=== PATIENT | female | born 1970 | race Caucasian/White ===

== ENCOUNTER 2023-05-28 07:43 | Outpatient (OUT) | payer OTHER, SELFPAY ==
--- NOTE | 2023-05-28 08:47 | CA_ITS ---
Patient Name: JOEY PETERSON MR#: [id number] : 1970 Exam Date: 05/28/2023 Ordering Doctor: JAMEL MCFARLAND ECHOCARDIOGRAM REPORT PROCEDURE: CA ECHO DOPPLER COMPLETE INDICATIONS: Palpitations, chest heaviness, hypertension COMPARISON: None. DESCRIPTION: COMPLETE ECHOCARDIOGRAM Real-time transthoracic echocardiography with 2D, M-mode, spectral and color flow Doppler performed. QUALITY: Technical quality was good. 65 , 170#, BSA 1.85 m2 LEFT VENTRICLE: Normal chamber size. Proximal septal hypertrophy (sigmoid septum). LV EF: Global left ventricular systolic function is normal; visually estimated ejection fraction is 60 to 65%. No obvious wall motion abnormalities. DIASTOLIC: Normal diastolic function. ATRIAL SEPTUM: Visually appears intact. LEFT ATRIUM: Normal chamber size. RIGHT ATRIUM: Normal chamber size. RIGHT VENTRICLE: Normal chamber size. Normal right ventricular systolic function. TRICUSPID VALVE: Normal mobility and thickness. Trivial regurgitation. No evidence of pulmonary hypertension. RVSP 29 mmHg MITRAL VALVE: Mildly thickened with normal mobility. No evidence of mitral valve stenosis. There is no mitral annular calcification. Mild mitral regurgitation. AORTIC VALVE: Normal trileaflet appearance. No visible sclerosis. Normal leaflet mobility. No evidence of aortic valve stenosis. No aortic regurgitation. AORTIC ROOT: Normal diameter and appearance. PULMONIC VALVE: Normal thickness and mobility. No stenosis. Trivial regurgitation. PERICARDIUM: No evidence of pericardial effusion. IVC: Collapses with inspirations. IVC is normal in size. CONCLUSION: 1. Global left ventricular systolic function is normal; EF is 60 to 65% 2. Normal diastolic function 3. Normal right ventricular size and systolic function 4. Mild mitral regurgitation Adult Echocardiography Procedure Report Left Ventricle LVEDD (3.7 - 5.6 cm): 4.15 cm LVESD (2.2 - 4.0 cm): 2.98 cm LVIVS thickness (0.6 - 1.2 cm): 1.45 cm LVPW thickness (0.5 - 1.0 cm): 0.87 cm e': 0.07 m/s E - e': 10.00 LVOT Max Gradient: 1.61 mm[Hg] LVOT Area (cm2): 0.64 m/s Peak Velocity (LVOT): 0.64 m/s Mean Velocity (LVOT): 0.42 m/s LVOT Diameter 2.27 cm Left Atrium LA Volume Index (2D A2C): 26.23 ml/m2 Left Atrium Systolic Dimension: 3.31 cm Mitral Valve MV E to A Ratio: 0.77 Mitral Valve A-Wave Peak Velocity: 0.89 m/s Mitral Valve E-Wave Peak Velocity: 0.68 m/s Right Ventricle Aorta AO Root Diam: 2.99 cm Ascending Ao Diam: 3.02 cm Aortic Valve AoV Area (Peak Amilcar): 2.63 cm2, 2.63 cm2 AoV Area (VTI): 2.25 cm2, 2.25 cm2 Peak Velocity(Antegrade Flow): 0.98 m/s Peak Gradient(Antegrade Flow): 3.81 mm[Hg] Mean Velocity(Antegrade Flow): 0.73 m/s Mean Gradient(Antegrade Flow): 2.28 mm[Hg] Velocity Time Integral: 22.92 cm Tricuspid Valve Peak Velocity (Regurgitant Flow): 2.53 m/s, 2.50 m/s Pulmonic Valve Peak Velocity: 0.84 m/s Peak Gradient: 3.16 mm[Hg], 2.49 mm[Hg] Right Atrium Right Atrium Systolic Pressure: 26.66 ml, 26.66 ml Dictated by: Ashley Meneses M.D. on 05/28/2023 at 14:09 Approved by: Ashley Meneses M.D. on 05/28/2023 at 14:20
--- NOTE | 2023-05-28 08:47 | CA_ITS ---
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1970 Requested By: [id number] Order Number: [id number] Reading MD: ELLIE KEITA Interpretive Statements Predominant rhythm is sinus with average rate of 79 bpm Tachycardia - max rate of 156 bpm - longest episode of 13min 7sec with rates between 111-129 bpm Bradycardia - min rate of 47 bpm - longest episode of 11min 57sec with rates between 50-58 bpm Ventricular ectopy - 35,897 total (5%) - 33,502 PVC - 202 couplets - 1,253 bigeminy - 869 trigeminy NSVT - 13 episodes with longest episode of 10 beats Patient triggered events: 3 - not associated with any symptoms - normal sinus rhythm w/ ventricular ectopy Impression: Predominant rhythm is sinus with average rate of 79 bpm Fastest rate of 156 bpm and slowest rate of 47 bpm 35,897 ventricular ectopy (5% total) 13 episodes of NSVT w/ longest episode of 10 beats No atrial fibrillation No pauses or blocks Electronically Signed On 06-17-2023 7:27:32 EST by ELLIE KEITA
== END 2023-05-28 07:44 | disposition home or self-care (01) ==
LOC: CARD 07:44
DX: I34.1 Nonrheumatic mitral (valve) prolapse (principal); R00.2 Palpitations; R07.89 Other chest pain
CPT/HCPCS: 93246; 93306

== ENCOUNTER 2023-07-09 11:55 | Outpatient (OUT) | payer OTHER, SELFPAY ==
--- NOTE | 2023-07-09 | ECG_ITS ---
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
--- OUTSIDE RECORDS SUMMARY | 2023-07-09 11:58 | XMS_ITS | CCD ---
Author Name Unknown Address [address] [place] [address] Organization [facility] Care Team Providers Care Artificial Flowers Dyer Name Role Phone KEYONNA MCFARLAND Primary Care Physician Chris Leslie Primary Care Provider [phone] Torrey ANTHONY - Keyonna SUMNER Primary Care Provide r MARSHAL ARSHAD Referring Unavailable CHRIS LESLIE Primary Care Unavailable MARSHAL ARSHAD Referring Unavailable CHRIS LESLIE Primary Care Unavailable MARSHAL ARSHAD Referring Unavailable CHRIS LESLIE Primary Care Unavailable KEYONNA MCFARLAND Primary Care Unavailable CHRIS LESLIE Referring Unavailable KEYONNA MCFARLAND Admitting Unavailable KEYONNA MCFARLAND Attending Unavailable KEYONNA MCFARLAND Consulting Unavailable KEYONNA MCFARLAND Admitting Unavailable KEYONNA MCFARLAND Attending Unavailable KEYONNA MCFARLAND Consulting Unavailable No, Physician Primary Care Provider Unavailabl e NO, PHYSICIAN Primary Care Unavailable GABRIELA ACUÑA Attending Unavaila ble KEYONNA MCFARLAND Primary Care Physician [phone] Luis Blackburn Admitting Unavailable Luis Blackburn Attending Unavailable KEYONNA MCFARLAND Attending Unavailable Allergies Allergy Classification Reported Allergen(s) Allergy Type Date of Onset Reaction(s) Facility (6 sources) Cefaclor; Translations: [cefaclor] Drug Allergy 8 Eruption of skin (disorder), Rash [facility] (4 sources) Kiwi; Translations: [Kiwi] Allergy to substance blister in mouth [facility] Medications Current Medications Medication Drug Class(es) Dates Sig (Normalized) Sig (Original) Calcium Citrate / Vitamin D (3 sources) Start: 7 Calcium + Vitamin D Calcium + Vitamin D, 1,000 mg, Oral, Daily Start Date: 02/18/17 Status: Ordered duloxetine 30 mg Cap-DR (3 sources) Start: 1 take 1 capsule by mouth twice daily duloxetine 30 mg Cap-DR = 1 cap(s), Oral, BID, (do not crush or chew) Start Date: 07/19/20 Status: Ordered enalapril maleate 10 mg / hydroCHLOROthiazide 25 mg oral tablet (3 sources) Thiazide Diuretic, Angiotensin Converting Enzyme Inhibitor Start: 4 take 1 tablet by mouth once daily enalapril-hydrochloro thiazide 10 mg-25 mg Tab 1 tab(s), Oral, Daily, Refill(s) 0, High blood pressure Start Date: 03/21/14 Status: Ordered estradiol 1 mg oral tablet (1 source) Estrogen Start: 2 take 1 tablet by mouth once daily estradioL (ESTRACE) 1 MG tablet Take 1 (one) tablet (1 mg total) by mouth daily . 0 05/06/2022 Active hydroxychloroquine sulfate 200 mg oral tablet (1 source) Antimalarial, Antirheumatic Agent Start: 3 take 1 tablet by mouth once daily hydrOXYchloroQUINE (PLAQUENIL) 200 mg tablet Take 1 (one) tablet (200 mg total) by mouth once daily . 0 07/06/2022 Active ibuprofen 800 mg oral tablet (3 sources) Nonsteroidal Anti-inflammatory Drug Start: 6 take 1 tablet by mouth every eight hours as needed for pain Motrin 800 mg Tab 800 mg = 1 tab(s), Oral, q8hr, PRN as needed for pain, Refills(s) 0, Pain Start Date: 05/15/16 Status: Ordered sulfamethoxazole 800 mg / trimethoprim 160 mg oral tablet (1 source) Dihydrofolate Reductase Inhibitor Antibacterial, Sulfonamide Antimicrobial Start: 3 End: 3 take 1 tablet by mouth twice daily sulfamethoxazole-trim ethoprim (BACTRIM DS,SEPTRA DS) 800-160 mg per tablet Take 1 (one) tablet by mouth 2 (two) times a day for 7 days . 14 tablet 0 07/24/2022 07/31/2022 Active Completed/Discontinued Medications Medication Drug Class(es) Dates Sig (Normalized) Sig (Original) nitrofurantoin, macrocrystals 25 mg / nitrofurantoin, monohydrate 75 mg oral capsule (1 source) Nitrofuran Antibacterial Start: 07-24-2022 End: 07-24-2022 take 1 capsule by mouth twice daily nitrofurantoin, macrocrystal-monoh ydrate, (Macrobid) 100 MG capsule Take 1 (one) capsule (100 mg total) by mouth 2 (two) times a day for 7 days . 14 capsule 0 07/24/2022 07/24/2022 Discontinued (Alternate therapy) Problems Problem Classification Problem Date Documented Date Episodic/Chronic Abdominal pain (6 sources) Acute abdomen; Translations: [Right upper quadrant pain] Onset: 04-09-2022 Episodic Benign neoplasm of uterus (3 sources) Uterine leiomyoma 05-15-2016 Episodic Cardiac dysrhythmias (3 sources) Cardiac arrhythmia 07-15-2020 Chronic Diabetes mellitus without complication (3 sources) Prediabetes 05-15-2016 Episodic Essential hypertension (6 sources) Hypertensive disorder 05-15-2016 Chronic Genitourinary symptoms and ill-defined conditions (6 sources) Increased frequency of urination; Translations: [Frequency of micturition] Onset: 07-24-2022 Episodic Malaise and fatigue (3 sources) Fatigue 07-15-2020 Episodic Osteoarthritis (3 sources) Osteoarthritis 02-18-2017 Chronic Other female genital disorders (3 sources) Enlarged uterus 05-15-2016 Episodic Other non-traumatic joint disorders (2 sources) Pain in unspecified joint; Translations: [Pain in unspecified joint] Onset: 01-21-2022 Episodic Other nutritional; endocrine; and metabolic disorders (1 source) Body mass index (BMI) 27.0-27.9, adult; Translations: [BODY MASS INDEX BMI 27.0-27.9 ADULT] Onset: 05-20-2022 Episodic Other screening for suspected conditions (not mental disorders or infectious disease) (2 sources) Encounter for screening for cardiovascular disorders; Translations: [Encounter for screening for diabetes mellitus] Onset: 05-20-2022 Episodic Residual codes; unclassified (3 sources) Chronic pain 03-25-2017 Episodic Rheumatoid arthritis and related disease (3 sources) Bilateral rheumatoid arthritis of hands; Translations: [Rheumatoid arthritis, unspecified] Onset: 01-21-2022 Chronic Spondylosis; intervertebral disc disorders; other back problems (3 sources) Prolapsed thoracic intervertebral disc 03-25-2017 Chronic Spondylosis; intervertebral disc disorders; other back problems (3 sources) Thoracic radiculitis 03-25-2017 Episodic Unclassified (3 sources) Patient encounter status 07-19-2020 Results Test Name Value Interpretation Reference Range Facility Insurance Correspondenceon 1 07-06-2022 Insurance Correspondence [id number] [facility] Coding Summary.on 09-02-2022 Coding Summary. CD:[id number]+PGhlYWQ +[id number] xV8zN3PFBIbHYumbK VBQTElOSyIgbmFtZT 1kaXNjZXJu IC8+AC8bOLMdGyuue CNfa0V2bUN8T05whd 2wAAkcnSR6UIQtRmB ykufrf4nlxRv5LRha NmluOyBt RDQfjD60DIM2gJ01S n40aPZrtSVvc9fssN x0PaZdHQKdAPZ5zFk kPDgbg5JrCFOmE38u zQUam3J5 IGNvbGxhcHNlOyBlb TP3uJ2jIRiqrjroo4 uggqldTgy7iu37mGH up7P1xGT6D9HiclH4 IGJvbGQg MiolsEUMtD3uthdsp 2xvcjogIzAwMDAwMD u7EPc7VHBfpNgiHmB qCX39TSX0UTIoqnSp G1PmYAEi kEnzUrR9f4V3Pn6DK 1HQIhjwH5PSSCVJVV wvdGQ+WU47br86T7N oHiffKor0GDYtIWW5 aTY9iY1n BBWjWEvsm8L1mAV0A 5ImdbJzzr8os1glMS QdXXfgT27weMTmk7I 0KXHoxFE2GAEdzNmm JhVvpG08 Oyc+ZQEvfOszs7UeI yfqf9axw0yjoXf4Nv gwJSIgdmFsaWduPSJ 1w1UzSc0mWKEsqQR4 uVJ9nC0m YlXgCnN8SQbeN819Z bYecDCkWctxO80zW7 JvdXA+IPCzOyp6MUB bzHmbXA5sO6NyEJZb bmctbGVm lYxiJA5gYBEiapypN HPriD9tTECfZ8v6Lx XqDvQ8HOfeZ7DxSER gfbtuXp67vN2qMwOr KgT3TLqo O6QyqtM5FKVxmUXeH RopSKC6U73gz1R9WP BwOPUkLBI8nFU8oG4 hbGlnbjogbGVmdDsg dmVydGlj HHerMEkhG393QBOtw DsnPkNvZGluZyBEYX RlOiAgMDMvMTUvMjA yMzwvdGQ+PHRkIHN0 eWxlPSAn qQNiYDqxBi9toBpxp HsnLZ6ePKZjzrsaLO AanE1uPMKdqDWzeAn mQG1qFPAdywvse475 OiAxMHB0 DSLjyIHlF2ZxbV6mQ dJrQHFxLTDuE3OjqJ ClPTbiQ709ORsbSmZ 9IOEcmnDzX6PcHPOu aWduOiB0 u4C1Xf0Rr5DjupcoM 3RhdHVzOiAgRmluYW k4B7JvOigpqSE+PC9 1QLBrCB64CPk8SPG8 eWxlPSdi JRMtT0LkfF8aCmXrN GRkZGRkOyc+PHRhYm xlIHdpZHRoPScxMDA fQwYijUkvDH5aTf7d ZGVyLWNv fQzvyNIrVeHns9zvJ DPaMThxHD3lwYlcC0 ZdtBR8SBDqa5g8Em0 0B07cO0TpmMA+PGNv hCK3lTZ2 nA0jVzJvGcN5PQkjC 867OvTvyFQdSabmn2 ydx2jchNt8ZwG3CZA bviZbmXlyNDR9i5Tl Sb97N67h IHdpZHRoPSIxNSUiI YGzpNvkgz3ssN0uGt 8+YSNesPE8vRK1tI3 oQcVvFqL2RImyZ159 InRvcCIv Vuyaq5gvu1tpmZe5K jIwJSIgdmFsaWduPS B4g1KyHx54E5XkmSq qs2TgWlw7sa03jPJx z7D2jND6 R8EkZJVjemahhOSwc SbhTE6rDAIldcqiQY XxhA0aMAQaA1c9YeW wBjS4WGmrZ7YutvA5 IGJvbGQg YUKwsEGOaO1blrubp 2xvcjogIzAwMDAwMD f2HAx0DZOigTpeLrF rIXB9CgI4DVK2sNYu nO5zrDwq zrifsP1xUoh+UGF0a BCqmMFNCH9kEajqzY Q+FDPnPOX2uUxjQAb vTTGeeH5hYIRgH5h7 OiAwLjA1 WXvyH5KkxpR0UTMrt VWoSYJdqIPVmC8yzn pmz4jtlaukNvOtCPF cNXo4LOv5QTZotRcr OiBsZWZ0 BiY7KLG3dILsbJ0ew ZvejqahuN4kQjl+Qm jbsMkuIUZ9NMh1F1N cCjv9ZWQxzVobVC4h cGFkZGlu Rz4qbKifwPgsPX2iP IVlyqupi617VyCwo5 xkIDEwcHQgVGltZXM 5M77lc3Y5HDBzUANk WGD3aGP3 rW5btPoljybniLJjc DsgdmVydGljYWwtYW viN538CVFoeStmFjC fHPq5E9SvDub9KMXy wTjlJV9w pSQcURvyAm6icFhdv IoxZR6tIJOwwieto0 25GbQxq2bnFZFekSP hPUalOVG9G81hb5X5 ICMwMDAw IYF6nCY0lK8peUckg jogbGVmdDsgdmVydG kjQKqeQUteO929NVN kqTvmBmJslUq5W2Jq Oti6YWAl sYfqRL0wsKBbDKrxW f3dwIophOnvYE9rIY Armcbmz687GuZvn8a kIDEwcHQgVGltZXM7 S30qd4G9 CEQjIYYlVYD3fHY8a Q4jeZpxtzldlTPhuB sgdmVydGljYWwtYWx gB259QRHtyLtpRtQd dGllbnQg NAmuBRx3X2LyTtdxz HI+OC73OWKgSI74tN VtjOIcz2kvhJd0TpZ gMOVqMVF7vYucWJxb h7EvBPTw G20ewKVwx3G4JCYmq PqzvVObPnVosVF7cW 0bOMyqleyxr8bhigx wGmozs0lbiy60oC26 H33tYMgc ZHRoPSIzMCUiIHZhb Hgrsv0lvZ2gXa7+PG LehRJ9dKB7aC4bWXH aVrJ6NPuuB780EsLh cCIvPjxj x8ama3yfoVc2BuX8V LEeguUazXbnVTL7z0 DyRb96K21mBCpqEFN oPSIyMCUiIHZhbGln nh3nkY2w Ii8+TTPbbDN7jAM2u I5zIyFlMyZ6OQoyV9 57MiPraIOzVlwbW74 aT0ViyOF+PHRyPjx0 ZCBzdHls AK0ujFXbZWwlXc5aP FB2ZgCmGuFwYYylV5 BhZGRpbmctcmlnaHQ 4KNRzUHEptL16Yz4i dDogMTBw gYHSjL7zngrke0hpn lcvAdSxDNEcFUr8SD l2OHGgcBdoRtRrOPS 3JyN2PDP0gHRzrK5e bGlnbjog oV7mP7QtCCQichkgC n08pL4fJxTnHiE3EL luOyc+Hn1DZXTXQR4 uPQWWRpnWSSBCVV73 RS24eFDy f2R0yKM2L6MvVJJxq vpzojzmiRJ4DDKcYA JbaC33gKBnFTzgWi4 cp2T8z577TNCyOIZm gY52Pl4x sUsfWQBqnSXRgU0cd jdas5gxfwxkRlDgKY IcRQe0EOd1YYWkwTb aUzUpYUA9LqS3DDB3 lQBrpF4z wGdvlnzcrD1lCfh+M VfpDJJbRDu7CVsraM Q+DRDrOMU7oMkkRDv vTXKjzT4bVVJjH3f2 OiAwLjA1 NVhoO5QoDRYdofbuB d73xM5kSyPvIvF7KB rkE4BcwaY9BXStsHA tTDkrCSZ3N30lr8V3 ICMwMDAw WTH1zQU2dD5bvGtrb jogbGVmdDsgdmVydG dvHWfbUMusJ616BZL vcDsnPjUzIFllYXJz KY63SF07 nMMyz2D0zNI8L8ZfX OXjjlyvkxbtnWD8US BwMNRoaF47rKXnAGk kJs3ma3N2l426AEIp CYTywX36 Dm8egBcxWUZjtZACw P6khhvbf6bdngkhFd IzXCMqYSu6KDt1LYX qyNjiUqMjIYA2UsY1 JSH2pOIj mT8xwKowoowpsR6rK yc+EwGnFPylVS27QI 54hUZdi3U1jLE6Z9B hZGRpbmctcmlnaHQ6 IDAuMDUw yI92eCWhNYrkPg9qb 8N7p170BYAeBCTfpG 23Qj2ygMstJNXwkLG PtO4fjzpos6cabiaa IzAwMDAw ADh1FLg2YDSicLneL yIxTTB1FrF6CDM2vX EipK9vgHgmxpvkyH6 wOyc+YGEiZLLhm4Vi d8CnUI22 YM43Y9WwHzyhhKFlr +PHRhYmxlIHdpZH RoPScxMDAlJyBzdHl gMD1nHk2wWYWuKAUk bGxhcHNl CxIgq8auWRUsEAjhN J5dxCqwK3RwdEC2HD Zjr5v3Ss34K47oC9J vdXA+TKXvuSM1rAB9 qS4dTtPl JkQ6JDtnX879SyByl REaXxtlj1slp0wjgO g7QpNlWXRituXfzGn eSRU2o4QiUr47K20q IHdpZHRo PSIyMCUiIHZhbGlnb c2wcJ5tLf3+PGNvbC Q8xNK7yO5iUyYsWmX 2LLwiL051AsVoaYVm SbhjI78e K4ZdrZL+IBCeNnt8N RQitWxzXR8wyGIyFR dpFi2cXWT9JiZoVvS qOEioZ0YrQQMyusaa cmlnaHQ6 QNGcDJPkjM62Iv6dd JisFf6eOKZfGWE8RT LgkWUjD7TjkG2tMoW wQDHaEXQtD8KqdHRd JHsyU750 XRuoWkD2ZMZvqpLmG 7OjTVMgeCxwOpJ3b2 P6Es7OaFxcfMVgSI0 cRcYmROr5G8SmVwn1 ZCBzdHls IN9wvKAqCJbyTy5jb ZomxUyiEH7wMKQbyp vjs183NeHkr1btYIF dtCGfVDlqCWT2Q67a l8Q9JASh BXJbXPT2oGV5cR7xr GlnbjogbGVmdDsgdm CjwMpdUCkaBLctK45 1NIUjnYdcGvBQPjd4 A7SdRqv8 EVCtlPucVI7zpGGwP WtrIs7fuUzwqCsaWB 7yKEBtfgfdc838LdK kx7tvOIZstULrSJfk LYA2B97t i8Z0AQAkENPqLVA3o ZQ3yN5sqUlhrkrzgS VmdDsgdmVydGljYWw fQYpvJ613HCSjyPdk Na4HAvv5 S2DxNmn1TUZawKvkW M0diAClLBwbRf2xvP ngyIwaRW5rXVUxued qi194NtYas8plKFMc cHQgVGlt OAX6T79dp4K7JNDoQ TVbJYE0zVQ7vW4fcY lnbjogbGVmdDsgdmV iyDmoEOqaWMsqO595 IHRvcDsn PlBheWVyOjwvdGQ+P B72ok15F5DbIswhJt g8NFJkOXF3vYR8fG8 zOCWuKHftv2L2gQA7 H4MjmfNm ci1j (more content not included)... Normal [facility] C Urineon 08-29-2022 Bacteria identified Cx Nom (U) Microbiology PROCEDURE: Urine Culture [R1] SOURCE: U CleanCatch BODY SITE: COLLECTED DATE/TIME: 08/27/2022 10:00 EST RECEIVED DATE/TIME: 08/27/2022 22:09 EST START DATE/TIME: 08/27/2022 22:09 EST FREE TEXT SOURCE: Bere ROBLERO, Luis Blackburn MD, Luis Lockhart FINAL REPORTS Final Report [] Verified Date/Time: 08/29/2022 12:45 EST 3,000 cfu/ml Mixed skin contaminants Performing Locations R1: This test was performed at: [facility], [address] [place] [address], [address] , , [facility] Comment on above: Performed By: #### [id number] #### [facility] [address] [place] [address] Physician Orderon 08-27-2022 Physician Order [id number]:127 [facility] POC Urinalysis Dipstick,Auto UCon 07-24-2022 Bilirubin Ql (U) Negative Negative [facility] th Clarity, UA Clear Clear [facility] Color (U) Yellow Yellow, Light Yellow, Dark Yellow [facility] Glucose Ql (U) Negative Normal, Negative mg/dL [facility] Hemoglobin Ql (U) Small Abnormal Negative [facility] Interpretation and review of laboratory results Abnormal [facility] Ketones Ql (U) Negative Negative mg/dL [facility] [place] [facility] Leukocyte esterase Test strip Ql (U) Moderate Abnormal Negative [facility] Nitrite Ql (U) Negative Negative [facility] pH (U) 5.5 [pH] 5.0 - 7.0 [facility] Protein Ql (U) Negative Negative mg/dL [facility] [place] [facility] Specific gravity (U) [Rel density] 1.030 Abnormal 1.005 - 1.025 [facility] Urobilinogen Qn (U) 0.2 mg/dL <2.0, 0. 2, Normal, Negative, 1.0, 2.0, <1.0 [facility] CBC AUTO DIFFon 06-18-2022 BASO # 0.0 103/ul Normal 0.0-0.1 [facility] Comment on above: Performed By: #### C BC #### [facility] [address] [place] [address] Dr. Leonel Chen Basophils/100 WBC (Bld) 0.5 % Normal 0.2-2.0 [facility] Comment on above: Performed By: #### C BC #### [facility] [address] [place] [address] Dr. Leonel Chen EO # 0.1 103/ul Normal 0.0-0.7 [facility] Comment on above: Performed By: #### C BC #### [facility] [address] [place] [address] Dr. Leonel Chen Eosinophils/100 WBC (Bld) 1.8 % Normal 0.9-7.0 [facility] Comment on above: Performed By: #### C BC #### [facility] [address] [place] [address] Dr. Leonel Chen Erythrocyte distribution width (RBC) [Ratio] 12.7 % Normal 11.0-15.0 [facility] Comment on above: Performed By: #### C BC #### [facility] [address] [place] [address] Dr. Leonel Chen Hematocrit (Bld) [Volume fraction] 41.7 % Normal 36.0-48.0 [facility] Comment on above: Performed By: #### C BC #### [facility] [address] [place] [address] Dr. Leonel Chen Hemoglobin (Bld) [Mass/Vol] 14.0 g/dL Normal 12.0-16.0 [facility] Comment on above: Performed By: #### C BC #### [facility] [address] [place] [address] Dr. Leonel Chen IG # 0.01 10e3/ul Normal 0.00-0.03 [facility] Comment on above: Performed By: #### C BC #### [facility] [address] [place] [address] Dr. Leonel Chen IG % 0.2 % Normal 0.0-0.5 [facility] Comment on above: Performed By: #### C BC #### [facility] [address] [place] [address] Dr. Leonel Chen LYMPH # 2.5 103/ul Normal 1.2-3.8 [facility] Comment on above: Performed By: #### C BC #### [facility] [address] [place] [address] Dr. Leonel Chen Lymphocytes/100 WBC (Bld) 41.4 % Normal 20.5-60.0 [facility] Comment on above: Performed By: #### C BC #### [facility] [address] [place] [address] Dr. Leonel Cehn MANUAL DIFF REQ NO Normal [facility] Comment on above: Performed By: #### C BC #### [facility] [address] [place] [address] Dr. Leonel Chen MCH (RBC) [Entitic mass] 30.2 pg Normal 26.7-34.0 [facility] Comment on above: Performed By: #### C BC #### [facility] [address] [place], [place] [id number] Dr. Leonel Chen MCHC (RBC) [Mass/Vol] 33.6 g/dL Normal 29.9-35.2 [facility] Comment on above: Performed By: #### C BC #### [facility] [address] [place] [address] Dr. Leonel Chen MCV (RBC) [Entitic vol] 90.1 fL Normal 81.0-99.0 [facility] Comment on above: Performed By: #### C BC #### [facility] [address] [place] [address] Dr. Leonel Chen MONO # 0.4 103/ul Normal 0.3-0.8 [facility] Comment on above: Performed By: #### C BC #### [facility] [address] [place] [address] Dr. Leonel Chen Monocytes/100 WBC (Bld) 7.0 % Normal 1.7-12.0 [facility] Comment on above: Performed By: #### C BC #### [facility] [address] [place] [address] Dr. Leonel Chen NEUT # 2.9 103/ul Normal 1.4-6.5 [facility] Comment on above: Performed By: #### C BC #### [facility] [address] [place] [address] Dr. Leonel Chen Neutrophils/100 WBC (Bld) 49.1 % Normal 43.0-75.0 [facility] Comment on above: Performed By: #### C BC #### [facility] [address] [place] [address] Dr. Leonel Chen Platelet mean volume (Bld) [Entitic vol] 10.9 fL Normal 9.5-13.5 [facility] Comment on above: Performed By: #### C BC #### [facility] [address] [place] [address] Dr. Leonel Chen PLT 183 103/ul Normal 150-450 [facility] Comment on above: Performed By: #### C BC #### [facility] [address] [place] [address] Dr. Leonel Chen RBC 4.63 106/ul Normal 4.20-5.40 [facility] Comment on above: Performed By: #### C BC #### [facility] [address] [place] [address] Dr. Leonel Chen WBC 6.0 103/ul Normal 4.0-11.0 [facility] Comment on above: Performed By: #### C BC #### [facility] [address] [place] [address] Dr. Leonel Chen PROF 14(COMP METB)on 022 Albumin [Mass/Vol] 3.6 g/dL Normal 3.4-5.0 [facility] Comment on above: Performed By: #### C MP #### [facility] [address] [place] [address] Dr. Leonel Chen Albumin/Globulin [Mass ratio] 0.9 {ratio} Normal [facility] Comment on above: Performed By: #### C MP #### [facility] [address] [place] [address] Dr. Leonel Chen ALP [Catalytic activity/Vol] 84 U/L Normal 46-116 [facility] Comment on above: Performed By: #### C MP #### [facility] [address] [place] [address] Dr. Leonel Chen ALT [Catalytic activity/Vol] 21 U/L Normal 14-59 [facility] Comment on above: Performed By: #### C MP #### [facility] [address] [place] [address] Dr. Leonel Chen Anion gap [Moles/Vol] 10.5 mmol/L Normal Th [facility] Comment on above: Performed By: #### C MP #### [facility] [address] [place] [address] Dr. Leonel Chen AST [Catalytic activity/Vol] 19 U/L Normal 15-37 [facility] Comment on above: Performed By: #### C MP #### [facility] [address] [place] [address] Dr. Leonel Chen Bilirubin [Mass/Vol] 0.5 mg/dL Normal 0.2-1.0 [facility] Comment on above: Performed By: #### C MP #### [facility] [address] [place] [address] Dr. Leonel Chen Calcium [Mass/Vol] 9.2 mg/dL Normal 8.5-10.1 [facility] Comment on above: Performed By: #### C MP #### [facility] [address] [place] [address] Dr. Leonel Chen Chloride [Moles/Vol] 101 mmol/L Normal 98-107 [facility] Comment on above: Performed By: #### C MP #### [facility] [address] [place] [address] Dr. Leonel Chen CO2 [Moles/Vol] 31.7 mmol/L Normal 21.0-32.0 [facility] Comment on above: Performed By: #### C MP #### [facility] [address] [place] [address] Dr. Leonel Chen Creatinine [Mass/Vol] 0.83 mg/dL Normal 0.55-1.02 [facility] Comment on above: Performed By: #### C MP #### [facility] [address] [place] [address] Dr. Leonel Chen EGFR-AF [place] >60 Normal >=60 [facility] Comment on above: Performed By: #### C MP #### [facility] [address] [place] [address] Dr. Leonel Chen EGFR-NON AF [place] >60 Normal >=60 [facility] Comment on above: Performed By: #### C MP #### [facility] [address] [place] [address] Dr. Leonel Chen Globulin (S) [Mass/Vol] 3.9 g/dL Normal [facility] Comment on above: Performed By: #### C MP #### [facility] [address] [place] [address] Dr. Leonel Chen Glucose [Mass/Vol] 86 mg/dL Normal 74-106 [facility] Comment on above: Performed By: #### C MP #### [facility] [address] [address] [address] Leonel Chen Potassium [Moles/Vol] 4.2 mmol/L Normal 3.5-5.1 [facility] Comment on above: Performed By: #### C MP #### [facility] [address] [address] [address] Leonel Chen Protein [Mass/Vol] 7.5 g/dL Normal 6.4-8.2 [facility] Comment on above: Performed By: #### C MP #### [facility] [address] [address] [address] Leonel Chen Sodium [Moles/Vol] 139 mmol/L Normal 136-145 [facility] Comment on above: Performed By: #### C MP #### [facility] [address] [address] [address] Leonel Chen Urea nitrogen [Mass/Vol] 14.0 mg/dL Normal 7.0-18.0 [facility] Comment on above: Performed By: #### C MP #### [facility] [address] [address] [address] Leonel Chen Urea nitrogen/Creatinine [Mass ratio] 16.9 mg/mg Normal [facility] Comment on above: Performed By: #### C MP #### [facility] [address] [address] [address] Leonel Chen PROF 14(COMP METB)on 022 Albumin [Mass/Vol] 3.6 g/dL Normal 3.4-5.0 [facility] Comment on above: Performed By: #### C MP #### [facility] [address] [address] [address] Leonel Chen Albumin/Globulin [Mass ratio] 0.9 {ratio} Normal [facility] Comment on above: Performed By: #### C MP #### [facility] [address] [address] [address] Leonel Chen ALP [Catalytic activity/Vol] 89 U/L Normal 46-116 [facility] Comment on above: Performed By: #### C MP #### [facility] [address] [address] [address] Leonel Chen ALT [Catalytic activity/Vol] 15 U/L Normal 14-59 [facility] Comment on above: Performed By: #### C MP #### [facility] [address] [address] [address] Leonel Chen Anion gap [Moles/Vol] 10.1 mmol/L Normal [facility] Comment on above: Performed By: #### C MP #### [facility] [address] [address] [address] Leonel Chen AST [Catalytic activity/Vol] 16 U/L Normal 15-37 [facility] Comment on above: Performed By: #### C MP #### [facility] [address] [place] [address] Dr. Leonel Chen Bilirubin [Mass/Vol] 0.3 mg/dL Normal 0.2-1.0 [facility] Comment on above: Performed By: #### C MP #### [facility] [address] [place] [address] Dr. Leonel Chen Calcium [Mass/Vol] 9.1 mg/dL Normal 8.5-10.1 [facility] Comment on above: Performed By: #### C MP #### [facility] [address] [address] [address] Leonel Chen Chloride [Moles/Vol] 102 mmol/L Normal 98-107 [facility] Comment on above: Performed By: #### C MP #### [facility] [address] [address] [address] Leonel Chen CO2 [Moles/Vol] 30.9 mmol/L Normal 21.0-32.0 [facility] Comment on above: Performed By: #### C MP #### [facility] [address] [address] [address] Leonel Chen Creatinine [Mass/Vol] 0.79 mg/dL Normal 0.55-1.02 [facility] Comment on above: Performed By: #### C MP #### [facility] [address] [address] [address] Leonel Chen EGFR-AF [place] >60 Normal >=60 [facility] Comment on above: Performed By: #### C MP #### [facility] [address] [address] [address] Leonel Chen EGFR-NON AF [place] >60 Normal >=60 [facility] Comment on above: Performed By: #### C MP #### [facility] [address] [address] [address] Leonel Chen Globulin (S) [Mass/Vol] 4.0 g/dL Normal [facility] Comment on above: Performed By: #### C MP #### [facility] [address] [place] [address] Dr. Leonel Chen Glucose [Mass/Vol] 93 mg/dL Normal 74-106 [facility] Comment on above: Performed By: #### C MP #### [facility] [address] [place] [address] Dr. Leonel Chen Potassium [Moles/Vol] 4.0 mmol/L Normal 3.5-5.1 [facility] Comment on above: Performed By: #### C MP #### [facility] [address] [place] [address] Dr. Leonel Chen Protein [Mass/Vol] 7.6 g/dL Normal 6.4-8.2 [facility] Comment on above: Performed By: #### C MP #### [facility] [address] [place] [address] Dr. Leonel Chen Sodium [Moles/Vol] 139 mmol/L Normal 136-145 [facility] Comment on above: Performed By: #### C MP #### [facility] [address] [place] [address] Dr. Leonel Chen Urea nitrogen [Mass/Vol] 18.0 mg/dL Normal 7.0-18.0 [facility] Comment on above: Performed By: #### C MP #### [facility] [address] [place] [address] Dr. Leonel Chen Urea nitrogen/Creatinine [Mass ratio] 22.8 mg/mg Normal [facility] Comment on above: Performed By: #### C MP #### [facility] [address] [place], [place] [address] Dr. Leonel Chen Cult,Urineon 04-10-2022 Cult,Urine Specimen Description .CLEAN CATCH URINE Culture STREPTOCOCCI, BETA HEMOLYTIC GROUP B >[id number] CFU/ML Report Status FINAL 04/10/2022 Abnormal [facility] Comment on above: Performed By: #### U RC #### [facility] [address] [place], [place] [id number] Utility Mechan[employer] Supervisor: Crow Hou MD [facility] [address] [place] [address] Utility Mechanic Supervisor: Shyam Baker MD Microscopic Urinalysison Bacteria, UA 1+ Abnormal None [facility] Epithelial Cells UA 5 TO 10 [facility] Interpretation and review of laboratory results Abnormal [facility] Mucus, UA TRACE Abnormal None [facility] RBC, UA 2 TO 5 [facility] WBC, UA 20 TO 50 [facility] UA w/Reflex Cultureon 2021 Bilirubin, SemiQt,Ur Negative Normal NEG [facility] Comment on above: Performed By: #### U AX, UMICAO #### [facility] [address] [place] [address] Utility Mechan[employer] Supervisor: Shyam Baker MD Blood, Urine TRACE Abnormal NEG [facility] Comment on above: Performed By: #### U AX, UMICAO #### [facility] [address] [place] [address] Utility Mechanic Supervisor: Shyam Baker MD Clarity (U) Clear Normal CLEAR [facility] Comment on above: Performed By: #### U AX, UMICAO #### [facility] [address] [place] [address] Utility Mechanic Supervisor: Shyam Baker MD Color (U) Onset Abnormal YEL [facility] Comment on above: Performed By: #### U AX, UMICAO #### [facility] [address] [place] [address] Utility Mechanic Supervisor: Shyam Baker MD Glucose Ql (U) TRACE Abnormal NEG [facility] Comment on above: Performed By: #### U AX, UMICAO #### [facility] [address] [place] [address] Utility Mechanic Supervisor: Shyam Baker MD Ketones Ql (U) Negative Normal NEG [facility] in Hospital Comment on above: Performed By: #### U AX, UMICAO #### [facility] [address] [place] [address] [place] [address] Utility Mechanic Supervisor: Shyam Baker MD Leukocyte esterase Test strip Ql (U) TRACE Abnormal NEG [facility] Comment on above: Performed By: #### U AX, UMICAO #### [facility] [address] [place] [address] [place] [address] Utility Mechanic Supervisor: Shyam Baker MD Nitrite,Ur Positive Abnormal NEG [facility] Comment on above: Performed By: #### U AX, UMICAO #### [facility] [address] [place] [address] [place] [address] Utility Mechanic Supervisor: Shyam Baker MD PH,Ur 8.0 Normal 5.0-9.0 [facility] Comment on above: Performed By: #### U AX, UMICAO #### [facility] [address] [place] [address] Utility Mechanic Supervisor: Shyam Baker MD Protein Ql (U) 1+ Abnormal NEG [facility] Comment on above: Performed By: #### U AX, UMICAO #### [facility] [address] [place] [address] Utility Mechanic Supervisor: Shyam Baker MD Spec. [place],Ur 1.015 Normal 1.010-1.020 [facility] Comment on above: Performed By: #### U AX, UMICAO #### [facility] [address] [place] [address] Utility Mechanic Supervisor: Shyam Baker MD Urobilinogen,Ur ELEVATED Abnormal NORM [facility] Comment on above: Performed By: #### U AX, UMICAO #### [facility] [address] [place] [address] Utility Mechanic Supervisor: Shyam Baker MD Urinalysis with Reflex to Cu ltureon 04-09-2022 Bilirubin Urine Negative NEGATIVE [facility] Color, UA Onset Abnormal Yellow [facility] Glucose, Ur TRACE Abnormal NEGATIVE [facility] Interpretation and review of laboratory results Abnormal [facility] Ketones Ql (U) Negative NEGATIVE [facility] Leukocyte esterase Test strip Ql (U) TRACE Abnormal NEGATIVE [facility] Nitrite, Urine Positive Abnormal NEGATIVE [facility] pH, UA 8.0 5.0 - 9.0 [facility] Protein, UA 1+ Abnormal NEGATIVE [facility] Specific [place], UA 1.015 1.010 - 1.020 [facility] Turbidity UA Clear Clear [facility] Urine Hgb TRACE Abnormal NEGATIVE [facility] Urobilinogen, Urine ELEVATED Abnormal Normal [facility] Urinalysis,Microon 2 Bacteria 1+ Abnormal NONE [facility] Comment on above: Performed By: #### U AX, UMICAO #### [facility] [address] [place] [address] Utility Mechanic Supervisor: Shyam Baker MD Epithelial cells LM Ql (Urine sed) 5 TO 10 Normal 0-25 [facility] Comment on above: Performed By: #### U AX, UMICAO #### [facility] [address] [place] [address] Utility Mechanic Supervisor: Shyam Baker MD Mucus Strands TRACE Abnormal NONE [facility] Comment on above: Performed By: #### U AX, UMICAO #### [facility] [address] [place] [address] Utility Mechanic Supervisor: Shyam Baker MD Urine RBC's 2 TO 5 Normal 0-2 [facility] Comment on above: Performed By: #### U AX, UMICAO #### [facility] [address] [place] [address] Utility Mechanic Supervisor: Shyam Baker MD Urine WBC's 20 TO 50 Normal 0-5 [facility] Comment on above: Performed By: #### U AX, UMICAO #### [facility] [address] [place] [address] Utility Mechanic Supervisor: Shyam Baker MD Miscellaneouson 01-30-2022 Send Out Report (NOTE) Normal [facility] Comment on above: Result Comment: Antinuclear Antibody (RYAN) with HEp-2 Substrate, IgG by IFA Antinuclear Antibody (RYAN), HEp-2, IgG <1:80 (Ref Interval: <1:80) RYAN Interpretive Comment See Note Antinuclear antibodies by IFA negative for homogeneous, speckled, nucleolar, centromere, and nuclear dots patterns. Cytoplasmic antibodies by IFA negative for reticular/AMA, discrete/GW body-like, polar/golgi-like, rods and rings, and cytoplasmic speckled patterns. INTERPRETIVE INFORMATION: RYAN Interpretive Comment Presence of antinuclear antibodies (RYAN) is a hallmark feature of systemic autoimmune rheumatic diseases (SARD). However, RYAN lacks diagnostic specificity and is associated with a variety of diseases (cancers, autoimmune, infectious, and inflammatory conditions) and may also occur in healthy individuals in varying prevalence. The lack of diagnostic specificity requires confirmation of positive RYAN by more specific serologic tests. RYAN (nuclear reactivity) positive patterns reported include centromere, homogeneous, nuclear dots, nucleolar, or speckled. RYAN (cytoplasmic reactivity) positive patterns reported include reticular/AMA, discrete/GW body-like, polar/golgi-like, cytoplasmic speckled or rods and rings. All positive patterns are reported to endpoint titers (1:2560). Reported patterns may help guide differential diagnosis, although they may not be specific for individual antibodies or diseases. Mitotic staining patterns not reported. Negative results do not necessarily rule out SARD. ARUP Performed By: #### S ED, CRP, CMIS #### [facility] [address] [place] [address] [place] [address] Utility Mechanic Supervisor: Shyam Baker MD #### CCPAB, RA #### [id number] [place], [place] [id number] Utility Mechanic Supervisor: Crow Hou MD Anti CCPon 01-23-2022 Anti CCP 2.1 U/mL Normal 0.0-7.0 [facility] Comment on above: Result Comment: Reference Range: <7.0 Negative 7.0-10.0 Equivocal >10.0 Positive Performed By: #### S ED, CRP, CMIS #### [address] [place] [address] Utility Mechanic Supervisor: Shyam Baker MD #### CCPAB, RA #### [address] [id number] Utility Mechanic Supervisor: Crow Hou MD RA Screenon 01-22-2022 RA Screen 17.1 IU/mL High <14 [facility] Comment on above: Performed By: #### S ED, CRP, CMIS #### [address] [place] [address] Utility Mechanic Supervisor: Shyam Baker MD #### CCPAB, RA #### [address] [id number] Utility Mechanic Supervisor: Crow Hou MD Rheumatoid Factoron 01-23-20 Interpretation and review of laboratory results Abnormal [facility] Rheumatoid Factor 17.1 High NINF [facility] XR HAND LEFT (MIN 3 VIEWS)on 01-22-2022 XR HAND LEFT (MIN 3 VIEWS) EXAMINATION: THREE XRAY VIEWS OF THE LEFT HAND 01/21/2022 4:30 pm COMPARISON: None. HISTORY: ORDERING SYSTEM PROVIDED HISTORY: Rheumatoid arthritis involving both hands, unspecified whether rheumatoid factor present ([facility]) TECHNOLOGIST PROVIDED HISTORY: rheumatoid arthritis FINDINGS: There is no acute osseous abnormality. The joint spaces are maintained. The surrounding soft tissues are unremarkable. IMPRESSION: No acute osseous or soft tissue abnormality. Interpreted by: Raymundo Meza MD Signed by: Raymundo Meza MD 01/22/22 Final result Normal [facility] No acute osseous or soft tissue abnormality. [facility] EXAMINATION: THREE XRAY VIEWS OF THE LEFT HAND 01/21/2022 4:30 pm COMPARISON: None. HISTORY: ORDERING SYSTEM PROVIDED HISTORY: Rheumatoid arthritis involving both hands, unspecified whether rheumatoid factor present ([facility]) TECHNOLOGIST PROVIDED HISTORY: rheumatoid arthritis FINDINGS: There is no acute osseous abnormality. The joint spaces are maintained. The surrounding soft tissues are unremarkable. [facility] Raymundo Meza MD - 01/22/2022 EXAMINATION: THREE XRAY VIEWS OF THE LEFT HAND 01/21/2022 4:30 pm COMPARISON: None. HISTORY: ORDERING SYSTEM PROVIDED HISTORY: Rheumatoid arthritis involving both hands, unspecified whether rheumatoid factor present ([facility]) TECHNOLOGIST PROVIDED HISTORY: rheumatoid arthritis FINDINGS: There is no acute osseous abnormality. The joint spaces are maintained. The surrounding soft tissues are unremarkable. IMPRESSION: No acute osseous or soft tissue abnormality. [employer] [facility] [employer] Work Phone: XR HAND LEFT (MIN 3 VIEWS)Or dered By: Raymundo Meza on 01-22-2022 [facility] [employer] Work Phone: XR HAND RIGHT (MIN 3 VIEWS)o n 01-22-2022 XR HAND RIGHT (MIN 3 VIEWS) EXAMINATION: THREE XRAY VIEWS OF THE RIGHT HAND 01/21/2022 4:30 pm COMPARISON: None. HISTORY: ORDERING SYSTEM PROVIDED HISTORY: Rheumatoid arthritis involving both hands, unspecified whether rheumatoid factor present ([facility]) TECHNOLOGIST PROVIDED HISTORY: Rheumatoid arthritis FINDINGS: There is no acute osseous abnormality. The joint spaces are maintained. The surrounding soft tissues are unremarkable. IMPRESSION: No acute osseous or soft tissue abnormality. Interpreted by: Raymundo Meza MD Signed by: Raymundo Meza MD 01/22/22 Final result [facility] No acute osseous or soft tissue abnormality. [facility] EXAMINATION: THREE XRAY VIEWS OF THE RIGHT HAND 01/21/2022 4:30 pm COMPARISON: None. HISTORY: ORDERING SYSTEM PROVIDED HISTORY: Rheumatoid arthritis involving both hands, unspecified whether rheumatoid factor present ([facility]) TECHNOLOGIST PROVIDED HISTORY: Rheumatoid arthritis FINDINGS: There is no acute osseous abnormality. The joint spaces are maintained. The surrounding soft tissues are unremarkable. [facility] Raymundo Meza MD - 01/22/2022 EXAMINATION: THREE XRAY VIEWS OF THE RIGHT HAND 01/21/2022 4:30 pm COMPARISON: None. HISTORY: ORDERING SYSTEM PROVIDED HISTORY: Rheumatoid arthritis involving both hands, unspecified whether rheumatoid factor present ([facility]) TECHNOLOGIST PROVIDED HISTORY: Rheumatoid arthritis FINDINGS: There is no acute osseous abnormality. The joint spaces are maintained. The surrounding soft tissues are unremarkable. IMPRESSION: No acute osseous or soft tissue abnormality. [facility] Work Phone: XR HAND RIGHT (MIN 3 VIEWS)O rdered By: Raymundo Meza on 01-22-2022 [facility] Work Phone: C-Reactive Proteinon 022 CRP [Mass/Vol] mg/L Normal 0.0-5.0 [facility] Comment on above: Performed By: #### S ED, CRP, CMIS #### [facility] [address] [place] [address] [place] [address] Utility Mechanic Supervisor: Shyam Baker MD #### CCPAB, RA #### [facility] [address] [place] [address] [id number] Utility Mechanic Supervisor: Crow Hou MD CRP [Mass/Vol] mg/L 0 - 5 mg/L [facility] Miscellaneouson 01-21-2022 Test Name [id number] Normal [facility] Comment on above: Performed By: #### S ED, CRP, CMIS #### [facility] [address] [place] [address] Utility Mechanic Supervisor: Shyam Baker MD #### CCPAB, RA #### [facility] [address] [place] [address] Utility Mechanic Supervisor: Crow Hou MD Sedimentation Rateon 022 Sedimentation Rate 15 mm/Hr Normal 0-30 [facility] Comment on above: Performed By: #### S ED, CRP, CMIS #### [facility] [address] [place] [address] Utility Mechanic Supervisor: Shyam Baker MD #### CCPAB, RA #### [facility] [address] [place] [address] Utility Mechanic Supervisor: Crow Hou MD Sed Rate 15 [facility] XR HAND LEFT (MIN 3 VIEWS)on 01-21-2022 Radiology Study observation (narrative) [facility] [employer] Phone: XR HAND RIGHT (MIN 3 VIEWS)o n 01-21-2022 Radiology Study observation (narrative) [facility] [employer] Phone: CHEMISTRYOrdered By: SYSTEM SYSTEM on 10-07-2021 25-hydroxyvitamin D3 [Mass/Vol] 28.2 ng/mL Low 30.0 - 100.0 ng/mL [facility] Anion gap [Moles/Vol] 13 mmol/L Normal 6 - 16 mEq/L [facility] Calcium [Mass/Vol] 9.2 mg/dL Normal 8.9 - 11. 1 mg/dL [facility] Chloride [Moles/Vol] 102 mmol/L Normal 101 - 1 11 mmol/L [facility] CO2 [Moles/Vol] 26 mmol/L Normal 21 - 31 mmol/L [facility] Creatinine [Mass/Vol] 0.8 mg/dL Normal 0.5 - 1.3 mg/dL [facility] CRP [Mass/Vol] 0.6 mg/dL Normal <=1.9mg/dL [facility] Remis ol GFR/1.73 sq M.predicted among blacks MDRD (S/P/Bld) [Vol rate/Area] mL/min/1.73 m2 Normal >=59mL/min/1.[address] [facility] Chem S GFR/1.73 sq M.predicted among non-blacks MDRD (S/P/Bld) [Vol rate/Area] mL/min/1.73 m2 Normal >=59mL/min/1.[address] [facility] Chem S Glucose [Mass/Vol] 98 mg/dL Normal 55 - 199 mg/dL [facility] Remisol Potassium [Moles/Vol] 3.7 mmol/L Normal 3.5 - 5.3 mmol/L [facility] Remisol Sodium [Moles/Vol] 137 mmol/L Normal 135 - 145 mmol/L [facility] Remisol Urea nitrogen [Mass/Vol] 21 mg/dL Normal 5 - 21 mg/dL [facility] Remisol Urea nitrogen/Creatinine [Mass ratio] 26 mg/mg High 10 - [address] [facility] Remisol HEMATOLOGYOrdered By: Shelia perez on 10-07-2021 Erythrocyte distribution width (RBC) [Ratio] 13.1 % Normal 10.9 - 14.2 % [facility] HemeAutoSS Hematocrit (Bld) [Volume fraction] 43.4 % Normal 34.0 - 46.0 % [facility]eAutoS S Hemoglobin (Bld) [Mass/Vol] 14.7 g/dL Normal 12.0 - 16.0 gm/dL [facility]SS MCH (RBC) [Entitic mass] 30.4 pg Normal 27.0 - 34.[address] [facility]eAutoSS MCHC (RBC) [Mass/Vol] 33.9 g/dL Normal 31.4 - 36.0 gm/dL [facility] [employer]SS MCV (RBC) [Entitic vol] 89.6 fL Normal 80.0 - 100.0 fL [facility]eAutoSS Platelet mean volume (Bld) [Entitic vol] 9.7 fL Normal 6.4 - 10.[address] [facility] HemeAut oSS Platelets (Bld) [#/Vol] 192.0 E9/L Normal 150.0 - 500.0 E9/L [facility]SS RBC (Bld) [#/Vol] 4.8 E12/L Normal 4.3 - 5.9 E12/L [facility]SS Sed Rate Automated 15 mm/h Normal 0 - 34 mm/hr [facility] WBC corrected for nucl RBC Auto (Bld) [#/Vol] 7.2 E9/L Normal 4.0 - 11.0 E9/L [facility]SS Vital Signs Date Time Vital Sign Value Performing Clinician Pk lewis 07-24-2022 14:26-0500 Diastolic blood pressure 87 mm[Hg] Gabriela Lamport PA-C Work Phone: [facility] 07-24-2022 14:26-0500 Systolic blood pressure 138 mm[Hg] Gabriela Lampor t PA-C Work Phone: [facility] 07-24-2022 14:16-0500 Body height 165.1 cm Gabriela Lamport PA -C Work Phone: [facility] 07-24-2022 14:16-0500 Body mass index (BMI) [Ratio] 27.89 kg/m2 Gabriela Lamport PA-C Work Phone: [facility] 07-24-2022 14:16-0500 Body temperature 97.2 [degF] Gabriela Lamport PA -C Work Phone: [facility] 07-24-2022 14:16-0500 Body weight 76.02 kg Gabriela Lamport PA -C Work Phone: [facility] 07-24-2022 14:16-0500 Heart rate 82 /min Gabriela Lamport PA -C Work Phone: [facility] 07-24-2022 14:16-0500 Respiratory rate 17 /min Gabriela Lamport PA -C Work Phone: [facility] 07-24-2022 14:16-0500 SaO2% (BldA) [Mass fraction] 97 % Gabriela Lamport PA-C Work Phone: [facility] Encounters Encounter Date Encounter Type Care Provider Facility Start: 06-18-2023 End: 06-18-2023 ambulatory KEYONNA MCFARLAND Not Available Start: 08-27-2022 End: 08-28-2022 ambulatory Luis Blackburn Facility:[facility] Start: 08-27-2022 End: 08-27-2022 Lab Drop off Luis Lyonsten [facility] Start: 07-24-2022 End: 07-24-2022 ambulatory PHYSICIAN PEDRO [facility] Start: 07-24-2022 End: 07-24-2022 Office outpatient new 30 minutes Gabriela CASTELLONC Work Phone: [facility] [place] Comment on above: Dysuria (Primary Dx) ; Urinary frequency Start: 06-18-2022 End: 06-19-2022 ambulatory KEYONNA MCFARLAND Facility:[facility] Start: 05-20-2022 Encounter for genera l adult medical examination without abnormal findings KEYONNA MCFARLAND [facility] Start: 05-16-2022 End: 05-17-2022 ambulatory KEYONNA MCFARLAND Facility:[facility] Start: 05-16-2022 End: 05-17-2022 Encounter for general adult medical examination without abnormal findings KEYONNA MCFARLAND Facility:[facility] Start: 04-09-2022 End: 04-10-2022 [facility] Start: 04-09-2022 End: 04-09-2022 Subsequent hospital visit by physician Keyonna Robbins CNP Work Phone: [facility] Start: 01-21-2022 End: 01-24-2022 ambulatory MARSHAL Valeria NANI [facility] Start: 01-21-2022 End: 01-23-2022 Subsequent hospital visit by physician [facility] Comment on above: Rheumatoid arthritis involving both hands, unspecified whether rheumatoid factor present ([facility]) Start: 10-07-2021 End: 10-07-2021 Patient encounter procedure KEYONNA MCFARLAND [facility] Procedures Date Procedure Procedure Detail Performing Clinician Start: 07-24-2022 Urnls dip stick/tabl et rgnt auto w/o microscopy Gabriela LÓPEZ-C Work Phone: Start: 04-09-2022 Urinalysis microscopic only Chris Leslie Work Phone: Start: 04-09-2022 Urnls dip stick/tabl et rgnt auto w/o microscopy Chris Leslie Work Phone: Start: 01-21-2022 End: 01-21-2022 Radex hand minimum 3 views Marshal perry MD Work Phone: Start: 01-21-2022 C-reactive protein Robe rt Valeria Arshad MD Work Phone: Start: 01-21-2022 Sedimentation rate r bc automated Marshal Arshad MD Work Phone: Start: 06-07-2017 Epidural injection o f thoracic spine using fluoroscopic guidance KEYONNA MCAFRLAND Comment on above: T5-6 20% relief for couple weeks Start: 05-22-2016 Total vaginal hysterectomy KEYONNA MCFARLAND Start: 03-22-2014 Colonoscopy Gabriela Acuña PA-C Work Phone: Start: 03-22-2014 Colonoscopy KEYONNA METCALF Plan of Treatment Date Care Activity Detail Author Start: 10-07-2024 [facility] Start: 03-22-2024 Screening for malign ant neoplasm of colon Colonoscopy [facility] Start: 04-29-2023 Lipid panel Lipids [facility] Start: 02-19-2022 Influenza vaccination Flu vaccine (# 1) [facility] Start: 01-19-2022 Influenza vaccination Flu vaccine (# 1) [facility] Start: 2019 Administration of he rpes zoster vaccine Zoster Vaccines (1 of 2) [facility] Start: 2019 Screening for malign ant neoplasm of breast [facility] Start: 2019 Screening for malign ant neoplasm of colon Flexible sigmoidoscopy [facility] Start: 2019 Shingles vaccine (1 of 2) Shingles vaccine (1 of 2) [facility] Start: 2014 Screening for malign ant neoplasm of colon [facility] Start: 2009 Screening for malign ant neoplasm of breast Mammogram [facility] Start: 1999 Screening for malign ant neoplasm of cervix [facility] Start: 1990 Screening for malign ant neoplasm of cervix Pap [facility] Start: 02-02-1988 DTaP/Tdap/Td vaccine (1 - Tdap) DTaP/Tdap/Td vaccine (1 - Tdap) [facility] Start: 1987 Hepatitis C [facility] Start: 02-02-1984 HIV screening [facility] [employer] Start: 1981 Depression Screen Depression Screen [facility] Start: 1981 Depression screening using PHQ-9 (Patient Health Questionnaire 9) score Depression Screening (PHQ-2/9) [facility] Start: 02-02-1972 History and physical examination, annual for health maintenance Wellness Visit [facility] Start: 1969 COVID-19 Vaccine (#1) COVID-19 Vacci ne (#1) [facility] Start: 1969 Screening for malign ant neoplasm of cervix Pap Smear [facility] Start: 1969 Screening for malign ant neoplasm of colon [facility] Start: 1969 Tetanus vaccination Tetanus: Every 1 0yrs [facility] Bacteria identified in Unspecified specimen by Aerobe culture Urine Aerobic Culture Microbiology Routine Urinary frequency Dysuria Ordered: 07/24/2022 [facility] Work Phone: Comment on above: Ordered: 07/24/2022 End: 04-09-2022 Culture, Urine [facility] [employer] Phone: Comment on above: Once for 1 Occurrenc es starting 04/09/2022 until 04/09/2022 End: 01-21-2022 Cyclic Citrul Peptide Antibody, IgG [facility] Phone: Comment on above: Once for 1 Occurrenc es starting 01/21/2022 until 01/21/2022 End: 01-21-2022 MISCELLANEOUS TESTING [facility] [employer] Phone: Comment on above: Once for 1 Occurrenc es starting 01/21/2022 until 01/21/2022 Immunizations Immunization Date Immunization Notes Care Provider Will jones 03-21-2020 influenza virus vaccine, unspecified formulation KEYONNA MCFARLAND [facility] Payers Date Payer Category Payer Unknown [id number] 2022 Unknown [facility] [place] [employer] [id number] 2022-Present [phone] [address] [address] [place] [address] [id number] 2022 Unknown [id number] 1969 Unknown [id number] 1969 Unknown [id number] 1969 Unknown [id number] 1969 Unknown [id number] 1969 Unknown [id number] 1969 Unknown [id number] 1969 Unknown [id number] 1969 Unknown [id number] 1969 Unknown [id number] 1959 Unknown [id number] Social History Date Type Detail Facility Start: 07-19-2020 End: 07-24-2022 Tobacco smoking status Never smoked tobacco (finding) [facility] Tobacco smoking status Never [facility] Sex Assigned At Female [facility] Tobacco smoking status NHIS Tobacco smoking consumption unknown [facility] [employer] Phone: Start: 1970 Sex Assigned At Not on file [facility] [employer] Phone: Start: 07-24-2022 Tobacco use and exposure Smokeless tobacco non-user [facility] Evaluation + Plan note 08-27-2022 Note Date & Type Note Facility 08-27-2022 Evaluation + Plan note Diagnostic Tests PendingUrine Culture 08/27/22 [facility] Instructions 07-24-2022 Patient InstructionsAttachments Note Date & Type Note Facility 07-24-2022 Instructions Gabriela Acuña PA-C - 07/24/2022 2:51 PM EST [facility], Dysuria/ABNL Urine test Your urine sample was abnormal in the clinic. I have sent this for a culture. We will call you with final results. Bactrim - antibiotic Push fluids. Rest. You can take cranberry pills or drink plain cranberry juice - there are mixed reviews on if this is truly effective in stopping bacteria from adhering to bladder wall--- It wont hurt to use it! Any worsening symptoms: cannot urinate, worsening current symptoms, gross hematuria, doc temp, n/v, sob, weakness, or any other concerns--ER! If your urine does show infection (positive culture results) then make sure to F/u with your pcp for recheck of urine in 7-10 days (as long as symptoms are improving). GET BETTER!!! The following attachments cannot be sent through Care Everywhere.Dysuria (Namibian)documented in this encounter [facility] History of Present illness Narrative 07-24-2022 Gabriela Acuña PA-C - 07/24/2022 2:49 PM EST Note Date & Type Note Facility 07-24-2022 History of Presen t illness Narrative Images from the original note were not included. Patient Name: [facility] Care Location: [facility] [address] [facility] [address] Date Of : Date Of Visit: 1970 07/24/2022 MRN# Provider: [id number] Gabriela Acuña PA-C Chief Complaint Patient presents with Urinary Tract Infection Burning, urinary frequency, lbp started yesterday Assessment & Plan 1. Dysuria Urine Aerobic Culture 2. Urinary frequency POC Urinalysis Dipstick,Auto UC Urine Aerobic Culture No follow-ups on file. Medical Decision Making Dysuria/ABNL Urine test Your urine sample was abnormal in the clinic. I have sent this for a culture. We will call you with final results. Bactrim - antibiotic Push fluids. Rest. You can take cranberry pills or drink plain cranberry juice - there are mixed reviews on if this is truly effective in stopping bacteria from adhering to bladder wall--- It wont hurt to use it! Any worsening symptoms: cannot urinate, worsening current symptoms, gross hematuria, doc temp, n/v, sob, weakness, or any other concerns--ER! If your urine does show infection (positive culture results) then make sure to F/u with your pcp for recheck of urine in 7-10 days (as long as symptoms are improving). Additional Clinical Comments Consider - UTI, acute cystitis, Vaginitis, STD/STI, dm, pyelonephritis Abd nontender, soft, bs+ w/o hsm or flank ttp / ecchymosis. No abnl vag dc or bleeding. VSS; pt is afebrile. Hx of recurrent uti's in the past - does not have urologist. Discussed follow up with pcp and discussed ref to urology. Risk of bacterial resistance; urine culture pending. No gross hematuria. one male partner, no painful intercourse. Pt is nontoxic, afebrile, w/o ams and verbalized good understanding and agreement. Subjective 52 y.o. female presents with Urinary Tract Infection (Burning, urinary frequency, lbp started yesterday) HPI Review Of Systems Review of Systems Constitutional: Negative for activity change, appetite change, chills, fever and unexpected weight change. HENT: Negative for sore throat. Respiratory: Negative for cough and shortness of breath. Cardiovascular: Negative for chest pain, palpitations and leg swelling. Gastrointestinal: Negative for abdominal pain, blood in stool, constipation, diarrhea, nausea and vomiting. Genitourinary: Positive for dysuria and frequency. Negative for decreased urine volume, difficulty urinating, dyspareunia, enuresis, flank pain, genital sores, hematuria, menstrual problem, pelvic pain, urgency, vaginal bleeding, vaginal discharge and vaginal pain. Musculoskeletal: Negative for joint swelling, myalgias, neck pain and neck stiffness. Skin: Negative for rash. Psychiatric/Behavioral: Negative for confusion. Medical History History reviewed. No pertinent past medical history. Past Surgical History: Procedure Laterality Date HYSTERECTOMY (CERVIX REMAINS) There is no problem list on file for this patient. Social History Social History Tobacco Use Smoking status: Never Smokeless tobacco: Never Vaping Use Vaping Use: Never used Family History History reviewed. No pertinent family history. Objective Physical Exam BP 138/87 Pulse 82 Temp 97.2 F (36.2 C) Resp 17 Ht 5' 5 Wt 76 kg (167 lb 9.6 oz) SpO2 97% BMI 27.89 kg/m Vision/Hearing Exam:No results found. Physical Exam Vitals and nursing note reviewed. Constitutional: General: She is not in acute distress. Appearance: Normal appearance. She is not ill-appearing, toxic-appearing or diaphoretic. HENT: Head: Normocephalic and atraumatic. Right Ear: External ear normal. A middle ear effusion is present. Left Ear: External ear normal. A middle ear effusion is present. Nose: Septal deviation present. No mucosal edema, congestion or rhinorrhea. Right Turbinates: Not enlarged, swollen or pale. Left Turbinates: Not enlarged, swollen or pale. Right Sinus: No maxillary sinus tenderness or frontal sinus tenderness. Left Sinus: No maxillary sinus tenderness or frontal sinus tenderness. Mouth/Throat: Mouth: Mucous membranes are moist. Eyes: General: No scleral icterus. Right eye: No discharge. Left eye: No discharge. Extraocular Movements: Extraocular movements intact. Conjunctiva/sclera: Conjunctivae normal. Cardiovascular: Rate and Rhythm: Normal rate and regular rhythm. Pulses: Normal pulses. Heart sounds: Normal heart sounds. No murmur heard. No friction rub. No gallop. Pulmonary: Effort: Pulmonary effort is normal. No respiratory distress. Breath sounds: Normal breath sounds. No stridor. No wheezing, rhonchi or rales. Comments: NO cough heard throughout exam. No resp distress, accessory muscle use. No chest wall ttp or crepitus, painful or abnl resps. Chest: Chest wall: No tenderness. Abdominal: General: Bowel sounds are normal. There is no distension. Palpations: Abdomen is soft. Tenderness: There is abdominal tenderness. There is no right CVA tenderness, left CVA tenderness or guarding. Comments: No hsm, flank ecchymosis bilat. Musculoskeletal: General: No swelling, tenderness, deformity or signs of injury. Normal range of motion. Cervical back: Normal range of motion and neck supple. No rigidity. No muscular tenderness. Right lower leg: No edema. Left lower leg: No edema. Lymphadenopathy: Cervical: No cervical adenopathy. Skin: General: Skin is warm and dry. Capillary Refill: Capillary refill takes 2 to 3 seconds. Coloration: Skin is not jaundiced or pale. Findings: No bruising, erythema, lesion or rash. Neurological: General: No focal deficit present. Mental Status: She is alert and oriented to person, place, and time. Sensory: No sensory deficit. Motor: No weakness. Gait: Gait normal. Psychiatric: Mood and Affect: Mood normal. Behavior: Behavior normal. Thought Content: Thought content normal. Judgment: Judgment normal. Procedure Notes Procedures Results Recent Results (from the past 168 hour(s)) POC Urinalysis Dipstick,Auto UC Collection Time: 07/24/22 2:31 PM Result Value Ref Range POC Color, Urine Yellow Yellow, Light Yellow, Dark Yellow Clarity, UA Clear Clear Glucose, UA Negative Normal, Negative mg/dL Bilirubin, UA Negative Negative Ketones, UA Negative Negative mg/dL Spec Grav, UA 1.030 (A) 1.005 - 1.025 Blood, UA Small (A) Negative pH, UA 5.5 5.0 - 7.0 Protein, UA Negative Negative mg/dL Urobilinogen, UA 0.2 <2.0, 0.2, Normal, Negative, 1.0, 2.0, <1.0 mg/dL Nitrite, UA Negative Negative Leukocyte Esterase, UA Moderate (A) Negative No orders to display Orders Placed This Visit Orders Placed This Encounter Procedures Urine Aerobic Culture POC Urinalysis Dipstick,Auto UC Medication List At End Of Visit Current Outpatient Medications Medication Sig Dispense Refill estradioL (ESTRACE) 1 MG tablet Take 1 (one) tablet (1 mg total) by mouth daily . hydrOXYchloroQUINE (PLAQUENIL) 200 mg tablet Take 1 (one) tablet (200 mg total) by mouth once daily . nitrofurantoin, macrocrystal-monohydrate, (Macrobid) 100 MG capsule Take 1 (one) capsule (100 mg total) by mouth 2 (two) times a day for 7 days . 14 capsule 0 No current facility-administered medications for this visit. Patient Instructions Alanis, Your urine sample was abnormal in the clinic. I have sent this for a culture. We will call you with final results. Macrobid - antibiotic Push fluids. Rest. You can take cranberry pills or drink plain cranberry juice - there are mixed reviews on if this is truly effective in stopping bacteria from adhering to bladder wall--- It wont hurt to use it! Any worsening symptoms: cannot urinate, worsening current symptoms, gross hematuria, doc temp, n/v, sob, weakness, or any other concerns--ER! If your urine does show infection (positive culture results) then make sure to F/u with your pcp for recheck of urine in 7-10 days (as long as symptoms are improving). GET BETTER!!! documented in this encounter [facility] Evaluation + Plan note 10-07-2021 Note Date & Type Note Facility 10-07-2021 Evaluation + Plan note Diagnostic Tests PendingANA w/Reflex if POS 10/07/21Rheumatoid Factor Quantitative 10/07/21 [facility] Evaluation + Plan note Note Date & Type Note Facility Evaluation + Plan note No data available for this section [facility] Evaluation note Note Date & Type Note Facility Evaluation note Diagnosis Rheumatoid arthritis involving both hands, unspecified whether rheumatoid factor present (HCC) documented in this encounter [facility] [employer] Phone: Evaluation note Note Date & Type Note Facility Evaluation note Diagnosis Dysuria- Primary Urinary frequency documented in this encounter [facility] Hospital Discharge instructions Note Date & Type Note Facility Hospital Discharge instructions No data available for this section [facility] Progress note Note Date & Type Note Facility Progress note No data available for this section [facility] Summary Purpose Family History No Family History Records FoundNo Family History Records FoundNo Family History Records FoundNo Family History Records FoundNo Family History Records Found Advance Directives No Advanced Directives Records FoundNo Advanced Directives Records FoundNo Advanced Directives Records FoundNo Advanced Directives Records FoundNo Advanced Directives Records Found Additional Source Comments Care Teams (unrecognized sec tion and content) [employer] Relationship Specialty Start Date End Date Chris Leslie [address] [place] [address] PCP - General Family Medicine 01/21/22 [employer] Relationship Specialty Start Date End Date Chris Leslie [address] [facility] [place] [address] PCP - General Family Medicine 01/21/22 [employer] Relationship Specialty Start Date End Date Keyonna Mcfarland, 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 [address] [place] [address] PCP - General 04/09/22 [employer] Relationship Specialty Start Date End Date No, Physician [facility] PCP - General 07/24/22 INFORMATION SOURCE (unrecogn ized section and content) DATE CREATED AUTHOR 04/13/2022 [facility] DATE CREATED AUTHOR AUTHOR'S ORGANIZ ATION 06/20/2022 [facility] DATE CREATED AUTHOR AUTHOR'S ORGANIZ ATION 07/25/2022 [facility] DATE CREATED AUTHOR AUTHOR'S ORGANIZ ATION 05/08/2023 [facility] DATE CREATED AUTHOR AUTHOR'S ORGANIZ ATION 06/19/2023 [facility] EPIC Reason for Visit (unrecogniz ed section and content) Reason Comments Urinary Tract Infection Burning, urinary frequency, lbp started yesterday FOR RECORDS PERTAINING TO PATIENTS WHO ARE OR HAVE BEEN ENROLLED IN A CHEMICAL DEPENDENCY/SUBSTANCEABUSE PROGRAM, SOME INFORMATION MAY BE OMITTED. This clinical summary was aggregated from multiple sources. Caution should be exercised in using it in the provision of clinical care. This summary normalizes information from multiple sources, and as a consequence, information in this document may materially change the coding, format and clinical context of patient data. In addition, data may be omitted in some cases. CLINICAL DECISIONS SHOULD BE BASED ON THE PRIMARY CLINICAL RECORDS. [facility]. provides no warranty or guarantee of the accuracy or completeness of information in this document.
--- NOTE | 2023-07-09 13:10 | XR_ITS ---
The [address] [address] Patient Name: JOEY ROMAN MRN: [id number] date: 1970 Sex: F Assigned Patient Location: RAD Current Patient Location: RAD Accession/Order Number: [id number] Exam Date: 07/09/2023 13:13 Report Date: 07/09/2023 13:34 At the request of: KEYLA DICKINSON Procedure: XR chest 2V EXAM: XR chest 2V HISTORY: Heart Palpitations R00.2, Chest Heaviness R07.89 COMPARISON: None TECHNIQUE: PA and lateral views of the chest were obtained. FINDINGS: Heart and mediastinal contours are unremarkable in appearance. No acute infiltrate or consolidations are seen. No obvious pneumothorax. Mild degenerative changes in the dorsal spine. XR/XR chest 2V IMPRESSION: No acute process seen in the chest. Electronically authenticated by: CATRINA MAX Date: 07/09/2023 13:34
== END 2023-07-09 11:56 | disposition home or self-care (01) ==
LOC: RAD 11:56
DX: R00.2 Palpitations (principal); R07.89 Other chest pain
CPT/HCPCS: 71046; 93005

== ENCOUNTER 2023-07-12 18:04 | Outpatient (OUT) | payer OTHER, SELFPAY ==
--- NOTE | 2023-07-12 | XR_ITS ---
The [address] [address] Patient Name: JOEY ROMAN MRN: [id number] date: 1970 Sex: F Assigned Patient Location: [facility] Current Patient Location: [facility] Accession/Order Number: [id number] Exam Date: 07/12/2023 18:20 Report Date: 07/12/2023 18:35 At the request of: NON-STAFF PHYSICIAN Procedure: XR chest 2V EXAM: XR chest 2V HISTORY: Acute Cough R05.1 COMPARISON: 07/09/2023 TECHNIQUE: Upright PA and lateral chest x-ray FINDINGS: The heart is not enlarged and the vasculature is not distended. No acute infiltrate, effusion or pneumothorax is identified. Some degenerative changes are seen in the spine. XR/XR chest 2V IMPRESSION: No acute infiltrate or evidence of cardiac decompensation. The overall appearance of the chest is essentially unchanged. Electronically authenticated by: CHRIS GRAVES Date: 07/12/2023 18:35
--- OUTSIDE RECORDS SUMMARY | 2023-07-12 18:10 | XMS_ITS | CCD ---
Author Name Unknown Address [address] [place] [address] Organization [facility] Care Team Providers Care Cooling System Operator Name Role Phone KEYONNA MCFARLAND Primary Care Physician [phone] Chris Leslie Primary Care Provider [phone] Torrey ANTHONY - Keyonna SUMNER Primary Care [...] Unavaila ble KEYONNA MCFARLAND Primary Care Physician Luis Blackburn Admitting Unavailable Luis Blackburn Attending Unavailable KEYONNA MCFARLAND Attending Unavailable Allergies Allergy Classification Reported Allergen(s) Allergy Type Date of Onset Reaction(s) Facility (6 sources) Cefaclor; Translations: [cefaclor] Drug Allergy 8 Eruption of skin (disorder), Rash [facility] (4 sources) Kiwi; Translations: [Kiwi] Allergy to substance blister in mouth [facility] Medications Current Medications Medication Drug Class(es) [...] Insurance Correspondenceon 1 07-06-2022 Insurance Correspondence [id number] [facility] Coding Summary.on 09-02-2022 Coding Summary. CD:[id number] +[id number] vD0yS1PEPRvLKhyyG VBQTElOSyIgbmFtZT 1kaXNjZXJu IC8+PI3yZBXbMsvxm MGei7X2mJK8J27mrq 6dDGpmkAB6DESoFuY yxfpqg7hvnQd0AThl NmluOyBt HICutC66XZK0bZ49T u32yNBieJEsm7mnnA o2CqSfPFGwEIN4qEd zAFnno4QyREYfS22k nWQfi3J3 IGNvbGxhcHNlOyBlb PE9rZ6fENiukuyog8 fyrcamGyn6tf85qSS py5Y9jSP3E9LbvdO8 IGJvbGQg TqkfmUEAiN3nemslp 2xvcjogIzAwMDAwMD t3NRh8JTDrkGxvZrR cVP33FOC2VSPsvoYd R5NoTBNz uLgsOuA6i3O4If4YY 2ZTYaxdC3CIAJKENT wvdGQ+FK87ll10U7F xJicaKgz1ODVyFAK1 yNG3uW2q ZBVtDJcqg6X4kNG8Q 5VgobYuwp8dz6tvLC KrVNxoK57rfFFkt0L 7GNBphDY3GBMnqSoi VsPitK20 Oyc+FSQpaUdwy8IaF iiyj2mjv0iytEz7Mk gwJSIgdmFsaWduPSJ 2j5ElOx1eWUTduKK2 dPO9pZ0y ZcIgYoX8TXzpN056G pGnhHCrDtjuJ02gU2 JvdXA+BABwLev8UKW buBzkOF7pM2RvCKAr bmctbGVm rVxvJX8uFXFiiigzY DUpnH2oCXFsW3x8Lf UsArN8RGxaF3KjVZD xjuinBj78nQ4wQzRh NhI9QNgm X8AvjgZ8LPEjhQImK JjcMXD2R89nc5X5RX AiZBRkEBZ1sHB3jA3 hbGlnbjogbGVmdDsg dmVydGlj LVhwVMfvM102GSPxz DsnPkNvZGluZyBEYX RlOiAgMDMvMTUvMjA yMzwvdGQ+PHRkIHN0 eWxlPSAn dUDlUEltWi2hpUvrr OndTB7qQDEzqvfsLX IpbG4nAGGiaTVljBf iDA0qCZGvqfwmn305 OiAxMHB0 RBYnwOBcK1GgzZ1lK vVkUEMoEEYsK9PqfS ZfGMhbY974SFooIaZ 6GESsmtKvQ1GnVNYr aWduOiB0 h1V7Qr3Bl0HbmhzjJ 3RhdHVzOiAgRmluYW b4E2DrCanibXN+PC9 0OCVkRL85KOr9KBH6 eWxlPSdi DPSzO0ZqaF7cHdZaS GRkZGRkOyc+PHRhYm xlIHdpZHRoPScxMDA kOqZpdGsuUX4oPb3q ZGVyLWNv jCembAQoHeNzd0uiW UFtKYlwKH8qsMbiD5 BewIB6SCScz9c2Qs6 5O71eZ3UbmVI+PGNv iJP9wLY6 jI3hPaPqOxD6IIqzH 314SmRvnIVoFspfr1 vgl3saaNr3PcI5ZJZ miwVjnDlkKOR9m7Fi Zv84Y62x IHdpZHRoPSIxNSUiI NUrdVicmr5xuC0lPt 8+SBWeiLZ0iQU6fJ6 cAtDrHuW4JRsyX200 InRvcCIv Knxjh1lkh8zyjIg7E jIwJSIgdmFsaWduPS J4b7PbOx38C6McvFg zk3JtJcv9yf00vUVl k6R7eUW9 I0TzVNRfppgqfPBfh NoxOF3nXHVtoczaHE YkwP8fVKJzK6i3VqV vGxM5GIftI1HjouJ1 IGJvbGQg QLNmuOUStZ3iqgmpn 2xvcjogIzAwMDAwMD e9KWf7DHJosOorEvV fZHD3TiT3VBE3iTMf cI8ifQyk dujboH9cGpr+UGF0a BMogMGOPP6bZjihxV Q+IPEnTXE1aHabBUo qDOIbgE9iNBXiV0t4 OiAwLjA1 NIhaM9VyukZ9KHHun ZGzYDPriROPuV9vxy iqj5vzabeuEoIoCNS nWSa6WBn6EUPlzQza OiBsZWZ0 ZbO9LCX0fYKteP9mz KrqsugbuL1aNcv+Qm pbnJpePRJ8VVf5U6X hUex2ECRiaEjfOR7z cGFkZGlu Eq1aaIvqvDfoQN1xG AKaetsat527JaHpz4 xkIDEwcHQgVGltZXM 9R58rd4I9KVCzJOMp ZRH6fWY7 xM6eeLlcfdlomHSti DsgdmVydGljYWwtYW huH331ZMGyiRlfDrY vTPg9B6AwCxo5YSFk eOzcMK9m nFAgHJnrYj2mtSmha JegFG1rNCAwqzqnt0 26YkLvo7cgESPwuYG sEGuwTBY9A07wz5U1 ICMwMDAw RUN2tBL3zV2gaUjvq jogbGVmdDsgdmVydG ygKRynVYudL072KMB sxRamJjLkrNt7Z1Pm Lrt4JAQd pJznZP0alIJxYJofR w6kgLcrgApwFP8vSO Hpulwae979NgGow7f kIDEwcHQgVGltZXM7 T29so1L4 QPZvEBWdEAT5bUJ0e B7vnGfkzyfytHUjsT sgdmVydGljYWwtYWx pR213RJZsvNtjUoUy dGllbnQg PWmsIHq0F4CtUvafp HI+IO01QYKqSH37bA NquRSng3xraQo4FpB sYDSbBKB3zKqjRCfi l1XmIPDm X22rhHIha0X9LNAce NcdyRKmHnAziAJ2xE 1kBNfonlkai9hwexx nVmeil4mktf29uD84 S70mDGce ZHRoPSIzMCUiIHZhb Echjt1bgW9qBn3+PG YbvZT6lGX9hI4oKKG sPpK9NJngH668KeIa cCIvPjxj i4sng6nkeBq3AjZ0P BBqdcRsmIqdHLJ7p1 ZpTi36Y69vFThbAVB oPSIyMCUiIHZhbGln yw6ezO2q Ii8+QUYffNI3hJS2a P0nTlVkGdT8DNelW7 01ZjRekUXgWpgaJ37 tG3DsfKH+PHRyPjx0 ZCBzdHls JF6mqXYaEVisRb0sQ AA4ZgCfPmQaRDamC4 BhZGRpbmctcmlnaHQ 8OXVhBAHnxC80Wv1x dDogMTBw xUEApE4qyefib3fuo gnrPvYuEGQzKBy8UM l0PELqjVgtWaExHIU 1HwP9WSC7lKVqhX0o bGlnbjog gC1fL3FxZJCavqspK p88iI2uQuPlRoA5YO luOyc+Oi9OCYDEJQ8 yKREGTwpJBWCYOA96 LY67ySQa g2N5tWK8R9GwDHSch smmcwfrkQI5LIRyXV BflP56cDZgKLcuJq0 hh2X5d806CIZnKUDk vS13Ld6c jTdyLPMblBTPdO1cz ingw4kqjhsnVvToCJ ScOJy6ZYk7PZXanWd uAkPzYBA2RsF0KKC7 iRJupG6g uRgyerjrvR0yYsk+M EkzKBGiMEp5SFkadW Q+YIYnGTS5fWdoTAs mXASyeO9nPUOzE7i5 OiAwLjA1 SGwuS0OrSRFhdlpwM c49rR3aVmVdKnV9VD ujG9UyezB3QASlgLR dEMllEJM6Y32ot7L1 ICMwMDAw MTJ5zTW9yU1uqTywq jogbGVmdDsgdmVydG jdGEgyAZqvT200NKQ vcDsnPjUzIFllYXJz NG59OF01 tLGvx1J4uPU6K4WwQ XVbknouddxazAX6CG IlCMXrkB77kORtUUc yWp4hk4M9q373TMAi XPJycM53 Lz6jkYfqFVYohLQKu D7bauemp0vjujtiGg JjCBBnWXj6SBt9WBY snDocPdFaCSD8JmI7 LWD2yURr uC2ddIevafmlxG9sI yc+IvXrAKjsXN43UZ 19qNOhk3Z5iCD6J6J hZGRpbmctcmlnaHQ6 IDAuMDUw jZ77nHGgGWqaAq2wf 3N6l170EYTnSHZtwG 38Cb2mxPdaPOGqsLD UiN2rygxyg1khzgap IzAwMDAw YCd4BFh6DZHqpPiaB eRhNMK4FtJ3PXC4zI VurV0tpBkyibrtuQ3 wOyc+YUKjCAOwe7Cl u1HgKC13 ZW74Q9XcRidrcFQkd +PHRhYmxlIHdpZH RoPScxMDAlJyBzdHl mEQ8vNc6pUGZyLFRl bGxhcHNl HdHrm6uiDKJpFKflN L8fvUexE3ZrxKK8YM Ekc1e1Ls44D54cR7K vdXA+EQIzkWQ0oEP3 cU5rOdYb OmI5WHvgZ912IwCpn AUgRiydc2hmk4lcjZ d2AdFwQSMwdfFudZb eECL1u3YtMt41C41h IHdpZHRo PSIyMCUiIHZhbGlnb t2zzW4wSa9+PGNvbC D8dVI6pZ1hJmNzLnL 5OZesY624BmRklWZo LtqkQ13k W5DrnWR+RDVnCyn9L AMgvAjxNI8hiOTeBU jnNp7yBMH4XbLpXwS eGUqsZ6FmQPFjmihy cmlnaHQ6 HPJvXQUorU56Ye2zx YldSr2lFDUwQAP9HB NkgFGvM1WkcT2sXyG aAXCqWVJxA7MijZHo CGrtM686 UWmiWnW2UQQgjtNtH 6OaOILffXdpIhW4l4 T6Sz4MpNbrvGQeBU2 gOyFoQQi3Q1LzTfw7 ZCBzdHls TM8njYRsKMwzVt5om YyliNmeDI2kPNPiox grt660MmKaj1jgYPF hmHIpHYupLZA1V36t e6P0VOEx NRHzLQJ7yGB9gS7tn GlnbjogbGVmdDsgdm MucOlwJMxfUPjvH59 6ENEeyQhjSbWMLmh5 R5ItQkz4 XKVjsLwrGR8jrZAgR PxuWx7xkStpfYcpUL 9qJINyljseu974ElF mb8wkHCSehSCsTJcm NVV2R70h i2U9LNJkPJOuNJC2c NA1mG8bvPidnjynpV VmdDsgdmVydGljYWw uETagI992CUPtsPwb Xl1SCzl7 E9ZjByl5ROVvcLcjH M8wjIGiZUuuQt9ilC lloLsjTU6fMCRqdbo wt441TkBjk4mnAHIr cHQgVGlt MHA5D74xo7M6GIYbB TXkZTC5qAD2wB9zbC lnbjogbGVmdDsgdmV yrMjkTHgzPCznX497 IHRvcDsn PlBheWVyOjwvdGQ+P L51bq06X3GwUlpjQh g5BIBlZKB3bAB2wV3 aORBqSIzdh1Q5hOF1 X0NiikKz ci1j (more content not included)... Normal [facility] C Urineon 08-29-2022 Bacteria identified Cx Nom [...] Locations R1: This test was performed at: [facility], [address] [place] [address], [id number] [phone] , [facility] Comment on above: Performed By: #### [id number] #### [facility] [address] [place] [address] Physician Orderon 08-27-2022 Physician Order [id number]:[id number] [facility] POC Urinalysis Dipstick,Auto UCon 07-24-2022 Bilirubin Ql (U) Negative Negative [facility] th Clarity, UA Clear Clear [facility] Color (U) Yellow Yellow, Light Yellow, Dark Yellow [facility] Glucose Ql (U) Negative Normal, Negative mg/dL [facility] Hemoglobin Ql (U) Small Abnormal Negative [facility] Interpretation and review of laboratory results Abnormal [facility] Ketones Ql (U) Negative Negative mg/dL [facility] Leukocyte esterase Test strip Ql (U) Moderate Abnormal Negative [facility] Nitrite Ql (U) Negative Negative [facility] pH (U) 5.5 [pH] 5.0 - 7.0 [facility] Protein Ql (U) Negative Negative mg/dL [facility] Specific gravity (U) [Rel density] 1.030 Abnormal 1.005 - 1.025 [facility] Urobilinogen Qn (U) 0.2 mg/dL <2.0, 0. 2, Normal, Negative, 1.0, 2.0, <1.0 [facility] CBC AUTO DIFFon 06-18-2022 BASO # 0.0 103/ul Normal 0.0-0.1 [facility] Comment on above: Performed By: #### C BC #### [facility] [place] [facility] [address] [place] [address] Dr. Leonel Chen Basophils/100 WBC (Bld) 0.5 % Normal 0.2-2.0 [facility] Comment on above: Performed By: #### C BC #### [facility] [address] [place] [address] Dr. Leonel Chen EO # 0.1 103/ul Normal 0.0-0.7 [facility] Comment on above: Performed By: #### C BC #### [facility] [address] [place] [address] Dr. Leonel Chen Eosinophils/100 WBC (Bld) 1.8 % Normal 0.9-7.0 [facility] Comment on above: Performed By: #### C BC #### [facility] [address] [place] [address] Dr. Leonel Chen Erythrocyte distribution width (RBC) [Ratio] 12.7 % Normal 11.0-15.0 [facility] Comment on above: Performed By: #### C BC #### [facility] [address] [place] [address] Dr. Leonel Chen Hematocrit (Bld) [Volume fraction] 41.7 % Normal 36.0-48.0 [facility] Comment on above: Performed By: #### C BC #### [facility] [address] [place] [address] Dr. Leonel Chen Hemoglobin (Bld) [Mass/Vol] 14.0 g/dL Normal 12.0-16.0 [facility] Comment on above: Performed By: #### C BC #### [facility] [address] [place] [address] Dr. Leonel Chen IG # 0.01 10e3/ul Normal 0.00-0.03 [facility] Comment on above: Performed By: #### C BC #### [facility] [address] [place] [address] Dr. Leonel Chen IG % 0.2 % Normal 0.0-0.5 [facility] Comment on above: Performed By: #### C BC #### [facility] [address] [place] [address] Dr. Leonel Chen LYMPH # 2.5 103/ul Normal 1.2-3.8 [facility] Comment on above: Performed By: #### C BC #### [facility] [address] [place] [address] Dr. Leonel Chen Lymphocytes/100 WBC (Bld) 41.4 % Normal 20.5-60.0 [facility] Comment on above: Performed By: #### C BC #### [facility] [address] [place] [address] Dr. Leonel Chen MANUAL DIFF REQ NO Normal [facility] Comment on above: Performed By: #### C BC #### [facility] [address] [place] [address] Dr. Leonel Chen MCH (RBC) [Entitic mass] 30.2 pg Normal 26.7-34.0 [facility] Comment on above: Performed By: #### C BC #### [facility] [address] [place], [place] [id number] Dr. Leonel Chen MCHC (RBC) [Mass/Vol] 33.6 g/dL Normal 29.9-35.2 [facility] Comment on above: Performed By: #### C BC #### [facility] [address] [place] [address] Dr. Leonel Chen MCV (RBC) [Entitic vol] 90.1 fL Normal 81.0-99.0 [facility] Comment on above: Performed By: #### C BC #### [facility] [address] [place] [address] Dr. Leonel Chen MONO # 0.4 103/ul Normal 0.3-0.8 [facility] Comment on above: Performed By: #### C BC #### [facility] [address] [place] [address] Dr. Leonel Chen Monocytes/100 WBC (Bld) 7.0 % Normal 1.7-12.0 [facility] Comment on above: Performed By: #### C BC #### [facility] [address] [place] [address] Dr. Leonel Chen NEUT # 2.9 103/ul Normal 1.4-6.5 [facility] Comment on above: Performed By: #### C BC #### [facility] [address] [place] [address] Dr. Leonel Chen Neutrophils/100 WBC (Bld) 49.1 % Normal 43.0-75.0 [facility] Comment on above: Performed By: #### C BC #### [facility] [address] [place] [address] Dr. Leonel Chen Platelet mean volume (Bld) [Entitic vol] 10.9 fL Normal 9.5-13.5 [facility] Comment on above: Performed By: #### C BC #### [facility] [address] [place] [address] Dr. Leonel Chen PLT 183 103/ul Normal 150-450 [facility] Comment on above: Performed By: #### C BC #### [facility] [address] [place] [address] Dr. Leonel Chen RBC 4.63 106/ul Normal 4.20-5.40 [facility] Comment on above: Performed By: #### C BC #### [facility] [address] [place] [address] Dr. Leonel Chen WBC 6.0 103/ul Normal 4.0-11.0 [facility] Comment on above: Performed By: #### C BC #### [facility] [address] [place] [address] Dr. Leonel Chen PROF 14(COMP METB)on 022 Albumin [Mass/Vol] 3.6 g/dL Normal 3.4-5.0 [facility] Comment on above: Performed By: #### C MP #### [facility] [address] [place] [address] Dr. Leonel Chen Albumin/Globulin [Mass ratio] 0.9 {ratio} Normal [facility] Comment on above: Performed By: #### C MP #### [facility] [address] [place] [address] Dr. Leonel Chen ALP [Catalytic activity/Vol] 84 U/L Normal 46-116 [facility] Comment on above: Performed By: #### C MP #### [facility] [address] [place] [address] Dr. Leonel Chen ALT [Catalytic activity/Vol] 21 U/L Normal 14-59 [facility] Comment on above: Performed By: #### C MP #### [facility] [address] [place] [address] Dr. Leonel Chen Anion gap [Moles/Vol] 10.5 mmol/L Normal Th [facility] Comment on above: Performed By: #### C MP #### [facility] [address] [place] [address] Dr. Leonel Chen AST [Catalytic activity/Vol] 19 U/L Normal 15-37 [facility] Comment on above: Performed By: #### C MP #### [facility] [address] [place] [address] Dr. Leonel Chen Bilirubin [Mass/Vol] 0.5 mg/dL Normal 0.2-1.0 [facility] Comment on above: Performed By: #### C MP #### [facility] [address] [place] [address] Dr. Leonel Chne Calcium [Mass/Vol] 9.2 mg/dL Normal 8.5-10.1 [facility] Comment on above: Performed By: #### C MP #### [facility] [address] [place] [address] Dr. Leonel Chen Chloride [Moles/Vol] 101 mmol/L Normal 98-107 [facility] Comment on above: Performed By: #### C MP #### [facility] [address] [place] [address] Dr. Leonel Chen CO2 [Moles/Vol] 31.7 mmol/L Normal 21.0-32.0 [facility] Comment on above: Performed By: #### C MP #### [facility] [address] [place] [address] Dr. Leonel Chen Creatinine [Mass/Vol] 0.83 mg/dL Normal 0.55-1.02 [facility] Comment on above: Performed By: #### C MP #### [facility] [address] [place] [address] Dr. Leonel Chen EGFR-AF [place] >60 Normal >=60 [facility] Comment on above: Performed By: #### C MP #### [facility] [address] [place] [address] Dr. Leonel Chen EGFR-NON AF [place] >60 Normal >=60 [facility] Comment on above: Performed By: #### C MP #### [facility] [address] [place] [address] Dr. Leonel Chen Globulin (S) [Mass/Vol] 3.9 g/dL Normal [facility] Comment on above: Performed By: #### C MP #### [facility] [address] [place] [address] Dr. Leonel Chen Glucose [Mass/Vol] 86 mg/dL Normal 74-106 [facility] Comment on above: Performed By: #### C MP #### [facility] [address] [address] [address] Leonel Chen Potassium [Moles/Vol] 4.2 mmol/L Normal 3.5-5.1 [facility] Comment on above: Performed By: #### C MP #### [facility] [address] [address] [address] Leonel Chen Protein [Mass/Vol] 7.5 g/dL Normal 6.4-8.2 [facility] Comment on above: Performed By: #### C MP #### [facility] [address] [address] [address] Leonel Chen Sodium [Moles/Vol] 139 mmol/L Normal 136-145 [facility] Comment on above: Performed By: #### C MP #### [facility] [address] [address] [address] Leonel Chen Urea nitrogen [Mass/Vol] 14.0 mg/dL Normal 7.0-18.0 [facility] Comment on above: Performed By: #### C MP #### [facility] [address] [address] [address] Leonel Chen Urea nitrogen/Creatinine [Mass ratio] 16.9 mg/mg Normal [facility] Comment on above: Performed By: #### C MP #### [facility] [address] [address] [address] Leonel Chen PROF 14(COMP METB)on 022 Albumin [Mass/Vol] 3.6 g/dL Normal 3.4-5.0 [facility] Comment on above: Performed By: #### C MP #### [facility] [address] [address] [address] Leonel Chen Albumin/Globulin [Mass ratio] 0.9 {ratio} Normal [facility] Comment on above: Performed By: #### C MP #### [facility] [address] [address] [address] Leonel Chen ALP [Catalytic activity/Vol] 89 U/L Normal 46-116 [facility] Comment on above: Performed By: #### C MP #### [facility] [address] [address] [address] Leonel Chen ALT [Catalytic activity/Vol] 15 U/L Normal 14-59 [facility] Comment on above: Performed By: #### C MP #### [facility] [address] [address] [address] Leonel Chen Anion gap [Moles/Vol] 10.1 mmol/L Normal Th [facility] Comment on above: Performed By: #### C MP #### [facility] [address] [address] [address] Leonel Chen AST [Catalytic activity/Vol] 16 U/L Normal 15-37 [facility] Comment on above: Performed By: #### C MP #### [facility] [address] [place] [address] Dr. Leonel Chen Bilirubin [Mass/Vol] 0.3 mg/dL Normal 0.2-1.0 [facility] Comment on above: Performed By: #### C MP #### [facility] [address] [place] [address] Dr. Leonel Chen Calcium [Mass/Vol] 9.1 mg/dL Normal 8.5-10.1 [facility] Comment on above: Performed By: #### C MP #### [facility] [address] [address] [address] Leonel Chen Chloride [Moles/Vol] 102 mmol/L Normal 98-107 [facility] Comment on above: Performed By: #### C MP #### [facility] [address] [address] [address] Leonel Chen CO2 [Moles/Vol] 30.9 mmol/L Normal 21.0-32.0 [facility] Comment on above: Performed By: #### C MP #### [facility] [address] [address] [address] Leonel Chen Creatinine [Mass/Vol] 0.79 mg/dL Normal 0.55-1.02 [facility] Comment on above: Performed By: #### C MP #### [facility] [address] [address] [address] Leonel Chen EGFR-AF [place] >60 Normal >=60 [facility] Comment on above: Performed By: #### C MP #### [facility] [address] [address] [address] Leonel Chen EGFR-NON AF [place] >60 Normal >=60 [facility] Comment on above: Performed By: #### C MP #### [facility] [address] [address] [address] Leonel Chen Globulin (S) [Mass/Vol] 4.0 g/dL Normal [facility] Comment on above: Performed By: #### C MP #### [facility] [address] [place] [address] Dr. Leonel Chen Glucose [Mass/Vol] 93 mg/dL Normal 74-106 [facility] Comment on above: Performed By: #### C MP #### [facility] [address] [place] [address] Dr. Leonel Chen Potassium [Moles/Vol] 4.0 mmol/L Normal 3.5-5.1 [facility] Comment on above: Performed By: #### C MP #### [facility] [address] [place] [address] Dr. Leonel Chen Protein [Mass/Vol] 7.6 g/dL Normal 6.4-8.2 [facility] Comment on above: Performed By: #### C MP #### [facility] [address] [place] [address] Dr. Leonel Chen Sodium [Moles/Vol] 139 mmol/L Normal 136-145 [facility] Comment on above: Performed By: #### C MP #### [facility] [address] [place] [address] Dr. Leonel Chen Urea nitrogen [Mass/Vol] 18.0 mg/dL Normal 7.0-18.0 [facility] Comment on above: Performed By: #### C MP #### [facility] [address] [place] [address] Dr. Leonel Chen Urea nitrogen/Creatinine [Mass ratio] 22.8 mg/mg Normal [facility] Comment on above: Performed By: #### C MP #### [facility] [address] [place], [place] [address] Dr. Leonel Chen Cult,Urineon 04-10-2022 Cult,Urine Specimen Description .CLEAN CATCH URINE Culture STREPTOCOCCI, BETA HEMOLYTIC GROUP B >[id number] CFU/ML Report Status FINAL 04/10/2022 Abnormal [facility] Comment on above: Performed By: #### U RC #### [facility] [address] [place], [place] [id number] [employer]inery [employer]er: Crow Hou MD [facility] [address] [place] [address] Heavy Machinery Assembler: Shyam Baker MD Microscopic Urinalysison Bacteria, UA 1+ Abnormal None [facility] Epithelial Cells UA 5 TO 10 [facility] Interpretation and review of laboratory results Abnormal [facility] Mucus, UA TRACE Abnormal None [facility] RBC, UA 2 TO 5 [facility] WBC, UA 20 TO 50 [facility] UA w/Reflex Cultureon 2021 Bilirubin, SemiQt,Ur Negative Normal NEG [facility] Comment on above: Performed By: #### U AX, UMICAO #### [facility] [address] [place] [address] [employer] Machinery As[employer]er: Shyam Baker MD Blood, Urine TRACE Abnormal NEG [facility] Comment on above: Performed By: #### U AX, UMICAO #### [facility] [address] [place] [address] [employer]inery As[employer]er: Shyam Baker MD Clarity (U) Clear Normal CLEAR [facility] Comment on above: Performed By: #### U AX, UMICAO #### [facility] [address] [place] [address] Heavy Machinery As[employer]er: Shyam Baker MD Color (U) [place] Abnormal YEL [facility] Comment on above: Performed By: #### U AX, UMICAO #### [facility] [address] [place] [address] Heavy Machinery Assembler: Shyam Baker MD Glucose Ql (U) TRACE Abnormal NEG [facility] Comment on above: Performed By: #### U AX, UMICAO #### [facility] [address] [place] [address] Heavy Machinery Assembler: Shyam Baker MD Ketones Ql (U) Negative Normal NEG [facility] in Hospital Comment on above: Performed By: #### U AX, UMICAO #### [facility] [address] [place] [address] [place] [address] Heavy Machinery Assembler: Shyam Baker MD Leukocyte esterase Test strip Ql (U) TRACE Abnormal NEG [facility] Comment on above: Performed By: #### U AX, UMICAO #### [facility] [address] [place] [address] [place] [address] Heavy Machinery Assembler: Shyam Baker MD Nitrite,Ur Positive Abnormal NEG [facility] Comment on above: Performed By: #### U AX, UMICAO #### [facility] [address] [place] [address] [place] [address] Heavy Machinery Assembler: Shyam Baker MD PH,Ur 8.0 Normal 5.0-9.0 [facility] Comment on above: Performed By: #### U AX, UMICAO #### [facility] [address] [place] [address] Heavy Machinery Assembler: Shyam Baker MD Protein Ql (U) 1+ Abnormal NEG [facility] in Hospital Comment on above: Performed By: #### U AX, UMICAO #### [facility] [address] [place] [address] Heavy Machinery Assembler: Shyam Baker MD Spec. [place],Ur 1.015 Normal 1.010-1.[address] [facility] Comment on above: Performed By: #### U AX, UMICAO #### [facility] [address] [place] [address] Heavy Machinery Assembler: Shyam Baker MD Urobilinogen,Ur ELEVATED Abnormal NORM [facility] Comment on above: Performed By: #### U AX, UMICAO #### [facility] [address] [place] [address] Heavy Machinery Assembler: Shyam Baker MD Urinalysis with Reflex to Cu ltureon 04-09-2022 Bilirubin Urine Negative NEGATIVE [facility] Color, UA [place] Abnormal Yellow [facility] Glucose, Ur TRACE Abnormal NEGATIVE [facility] Interpretation and review of laboratory results Abnormal [facility] Ketones Ql (U) Negative NEGATIVE [facility] Leukocyte esterase Test strip Ql (U) TRACE Abnormal NEGATIVE [facility] Nitrite, Urine Positive Abnormal NEGATIVE [facility] pH, UA 8.0 5.0 - 9.0 [facility] Protein, UA 1+ Abnormal NEGATIVE [facility] Specific [place], UA 1.015 1.010 - 1.020 [facility] Turbidity UA Clear Clear [facility] Urine Hgb TRACE Abnormal NEGATIVE [facility] Urobilinogen, Urine ELEVATED Abnormal Normal [facility] S [facility] Urinalysis,Microon 2 Bacteria 1+ Abnormal NONE [facility] Comment on above: Performed By: #### U AX, UMICAO #### [facility] [address] [place] [address] Heavy Machinery Assembler: Shyam Baker MD Epithelial cells LM Ql (Urine sed) 5 TO 10 Normal 0-25 [facility] Comment on above: Performed By: #### U AX, UMICAO #### [facility] [address] [place] [address] Heavy Machinery Assembler: Shyam Baker MD Mucus Strands TRACE Abnormal NONE [facility] Comment on above: Performed By: #### U AX, UMICAO #### [facility] [address] [place] [address] Heavy Machinery Assembler: Shyam Baker MD Urine RBC's 2 TO 5 Normal 0-2 [facility] Comment on above: Performed By: #### U AX, UMICAO #### [facility] [address] [place] [address] Heavy Machinery Assembler: Shyam Baker MD Urine WBC's 20 TO 50 Normal 0-5 [facility] Comment on above: Performed By: #### U AX, UMICAO #### [facility] [address] [place] [address] Heavy Machinery Assembler: Shyam Baker MD Miscellaneouson 01-30-2022 Send Out Report (NOTE) Normal [facility] Comment on above: Result Comment: Antinuclear Antibody [...] By: #### S ED, CRP, CMIS #### [facility] [address] [place] [address] [place] [address] Heavy Machinery Assembler: Shyam Baker MD #### CCPAB, RA #### [id number] [place], [place] [id number] Heavy Machinery Assembler: Crow Hou MD Anti CCPon 01-23-2022 Anti CCP 2.1 U/mL Normal 0.0-7.0 [facility] Comment on above: Result Comment: Reference Range: <7.0 Negative 7.0-10.0 Equivocal >10.0 Positive Performed By: #### S ED, CRP, CMIS #### [address] [place] [address] Heavy Machinery Assembler: Shyam Baker MD #### CCPAB, RA #### [address] [id number] Heavy Machinery Assembler: Crow Hou MD RA Screenon 01-22-2022 RA Screen 17.1 IU/mL High <14 [facility] Comment on above: Performed By: #### S ED, CRP, CMIS #### [address] [place] [address] Heavy Machinery Assembler: Shyam Baker MD #### CCPAB, RA #### [address] [id number] Heavy Machinery Assembler: Crow Hou MD Rheumatoid Factoron 01-23-20 Interpretation and review of laboratory results Abnormal [facility] Rheumatoid Factor 17.1 High NINF [facility] XR HAND LEFT (MIN 3 VIEWS)on 01-22-2022 [...] Raymundo Meza MD 01/22/22 Final result Normal [facility] No acute osseous or soft tissue abnormality. [facility] EXAMINATION: THREE XRAY VIEWS OF THE LEFT HAND 01/21/2022 4:30 pm COMPARISON: None. HISTORY: ORDERING SYSTEM PROVIDED HISTORY: Rheumatoid arthritis involving both hands, unspecified whether rheumatoid factor present ([facility]) TECHNOLOGIST PROVIDED HISTORY: rheumatoid arthritis FINDINGS: There is no acute osseous abnormality. The joint spaces are maintained. The surrounding soft tissues are unremarkable. [facility] Raymundo Meza MD - 01/22/2022 [...] No acute osseous or soft tissue abnormality. [employer] [facility] [employer] Work Phone: XR HAND LEFT (MIN 3 VIEWS)Or dered By: Raymundo Meza on 01-22-2022 [facility] [employer] [facility] [employer] Work Phone: XR HAND RIGHT (MIN 3 [...] by: Raymundo Meza MD 01/22/22 Final result [facility] No acute osseous or soft tissue abnormality. [facility] EXAMINATION: THREE XRAY VIEWS OF THE RIGHT HAND 01/21/2022 4:30 pm COMPARISON: None. HISTORY: ORDERING SYSTEM PROVIDED HISTORY: Rheumatoid arthritis involving both hands, unspecified whether rheumatoid factor present ([facility]) TECHNOLOGIST PROVIDED HISTORY: Rheumatoid arthritis FINDINGS: There is no acute osseous abnormality. The joint spaces are maintained. The surrounding soft tissues are unremarkable. [facility] Raymundo Meza MD - 01/22/2022 EXAMINATION: [...] No acute osseous or soft tissue abnormality. [facility] Work Phone: XR HAND RIGHT (MIN 3 VIEWS)O rdered By: Raymundo Meza on 01-22-2022 [facility] Work Phone: C-Reactive Proteinon 022 CRP [Mass/Vol] mg/L Normal 0.0-5.0 [facility] Comment on above: Performed By: #### S ED, CRP, CMIS #### [facility] [address] [place] [address] [place] [address] Heavy Machinery Assembler: Shyam Baker MD #### CCPAB, RA #### [facility] [employer] [address] [place] [address] [id number] Heavy Machinery Assembler: Crow Hou MD CRP [Mass/Vol] mg/L 0 - 5 mg/L [facility] Miscellaneouson 01-21-2022 Test Name [id number] Normal [facility] Comment on above: Performed By: #### S ED, CRP, CMIS #### [facility] [address] [place] [address] Heavy Machinery Assembler: Shyam Baker MD #### CCPAB, RA #### [facility] [address] [place] [address] Heavy Machinery Assembler: Crow Hou MD Sedimentation Rateon 022 Sedimentation Rate 15 mm/Hr Normal 0-30 [facility] Comment on above: Performed By: #### S ED, CRP, CMIS #### [facility] [address] [place] [address] Heavy Machinery Assembler: Shyam Baker MD #### CCPAB, RA #### [facility] [address] [place] [address] Heavy Machinery Assembler: Crow Hou MD Sed Rate 15 [facility] XR HAND LEFT (MIN 3 VIEWS)on 01-21-2022 Radiology Study observation (narrative) [facility] [employer] [facility] [employer] Phone: XR HAND RIGHT (MIN 3 VIEWS)o n 01-21-2022 Radiology Study observation (narrative) [facility] [employer] Phone: CHEMISTRYOrdered By: SYSTEM SYSTEM on 10-07-2021 [...] rate/Area] mL/min/1.73 m2 Normal >=59mL/min/1.7 3 m2 [facility] Chem S GFR/1.73 sq M.predicted among non-blacks MDRD (S/P/Bld) [Vol rate/Area] mL/min/1.73 m2 Normal >=59mL/min/1.7 3 m2 [facility] Chem S Glucose [Mass/Vol] 98 mg/dL Normal 55 - 199 mg/dL [facility] Remisol Potassium [Moles/Vol] 3.7 mmol/L Normal 3.5 - 5.3 mmol/L [facility] Remisol Sodium [Moles/Vol] 137 mmol/L Normal 135 - 145 mmol/L [facility] Remisol Urea nitrogen [Mass/Vol] 21 mg/dL Normal 5 - 21 mg/dL [facility] Remisol Urea nitrogen/Creatinine [Mass ratio] 26 mg/mg High 10 - 20 [facility] Remisol HEMATOLOGYOrdered By: Shelia perez on 10-07-2021 Erythrocyte distribution width (RBC) [Ratio] 13.1 % Normal 10.9 - 14.2 % [facility] HemeAutoSS Hematocrit (Bld) [Volume fraction] 43.4 % Normal 34.0 - 46.0 % [facility] HemeAutoS S Hemoglobin (Bld) [Mass/Vol] 14.7 g/dL Normal 12.0 - 16.0 gm/dL [facility] HemeAutoSS MCH (RBC) [Entitic mass] 30.4 pg Normal 27.0 - 34.0 pg [facility] HemeAutoSS MCHC (RBC) [Mass/Vol] 33.9 g/dL Normal 31.4 - 36.0 gm/dL FT [employer]eAutoSS MCV (RBC) [Entitic vol] 89.6 fL Normal 80.0 - 100.0 fL FT [facility]eAutoSS Platelet mean volume (Bld) [Entitic vol] 9.7 fL Normal 6.4 - 10.8 fL [facility] HemeAut oSS Platelets (Bld) [#/Vol] 192.0 E9/L Normal 150.0 - 500.0 E9/L FT [facility]eAutoSS RBC (Bld) [#/Vol] 4.8 E12/L Normal 4.3 - 5.9 E12/L [facility] HemeAutoSS Sed Rate Automated 15 mm/h Normal 0 - 34 mm/hr FT HemeAutoSS WBC corrected for nucl RBC Auto (Bld) [#/Vol] 7.2 E9/L Normal 4.0 - 11.0 E9/L [facility] HemeAutoSS Vital Signs Date Time Vital Sign Value Performing Clinician Pk lewis 07-24-2022 14:26-0500 Diastolic blood pressure 87 mm[Hg] Gabriela Lamport PA-C Work Phone: [facility] 07-24-2022 14:26-0500 Systolic blood pressure 138 mm[Hg] Gabriela Lampor t PA-C Work Phone: [facility] 07-24-2022 14:16-0500 Body height 165.1 cm Gabriela Lamport PA -C Work Phone: [facility] 07-24-2022 14:16-0500 Body mass index (BMI) [Ratio] 27.89 kg/m2 Gabriela Lamport PA-C Work Phone: [facility] 07-24-2022 14:16-0500 Body temperature 97.2 [degF] Gabriela Lamport PA -C Work Phone: [facility] 07-24-2022 14:16-0500 Body weight 76.02 kg Gabriela Lamport PA -C Work Phone: [facility] 07-24-2022 14:16-0500 Heart rate 82 /min Gabriela Lamport PA -C Work Phone: [facility] 07-24-2022 14:16-0500 Respiratory rate 17 /min Gabriela Lamport PA -C Work Phone: [facility] 07-24-2022 14:16-0500 SaO2% (BldA) [Mass fraction] 97 % Gabriela Lamport PA-C Work Phone: [facility] Encounters Encounter Date Encounter Type Care Provider Facility Start: 06-18-2023 End: 06-18-2023 ambulatory KEYONNA MCFARLAND Not Available Start: 08-27-2022 End: 08-28-2022 ambulatory Luis Blackburn Facility:[facility] Start: 08-27-2022 End: 08-27-2022 Lab Drop off Luis Lyonsten [facility] Start: 07-24-2022 End: 07-24-2022 ambulatory PHYSICIAN PEDRO [facility] Start: 07-24-2022 End: 07-24-2022 Office outpatient new 30 minutes Gabriela CASTELLONC Work Phone: [facility] [place] Comment on above: Dysuria (Primary Dx) ; Urinary frequency Start: 06-18-2022 End: 06-19-2022 ambulatory KEYONNA MCFARLAND Facility:[facility] Start: 05-20-2022 Encounter for genera l adult medical examination without abnormal findings KEYONNA MCFARLAND [facility] Start: 05-16-2022 End: 05-17-2022 ambulatory KEYONNA MCFARLAND Facility:[facility] Start: 05-16-2022 End: 05-17-2022 Encounter for general adult medical examination without abnormal findings KEYONAN MCFARLAND Facility:[facility] Start: 04-09-2022 End: 04-10-2022 [facility] Start: 04-09-2022 End: 04-09-2022 Subsequent hospital visit by physician Keyonna Robbins CNP Work Phone: [facility] Start: 01-21-2022 End: 01-24-2022 ambulatory MARSHAL Valeria NANI [facility] Start: 01-21-2022 End: 01-23-2022 Subsequent hospital visit by physician [facility] Comment on above: Rheumatoid arthritis involving both hands, unspecified whether rheumatoid factor present ([facility]) Start: 10-07-2021 End: 10-07-2021 Patient encounter procedure KEYONNA MCFARLAND [facility] Procedures Date Procedure Procedure Detail Performing [...] f thoracic spine using fluoroscopic guidance KEYONNA MCFARLAND Comment on above: T5-6 20% relief for couple weeks Start: 05-22-2016 Total vaginal hysterectomy KEYONNA MCFARLAND Start: 03-22-2014 Colonoscopy Gabriela Acuña PA-C Work Phone: Start: 03-22-2014 Colonoscopy KEYONNA METCALF Plan of Treatment Date Care Activity Detail Author Start: 10-07-2024 [facility] malign ant [facility]oplasm [facility] Start: 03-22-2024 Screening for malign ant neoplasm of colon Colonoscopy [facility] Start: 04-29-2023 Lipid panel Lipids [facility] [employer] Start: 02-19-2022 Influenza vaccination Flu vaccine (# 1) [facility] Start: 01-19-2022 Influenza vaccination Flu vaccine (# 1) [facility] Start: 2019 Administration of he rpes zoster vaccine Zoster Vaccines (1 of 2) [facility] Start: 2019 Screening for malign ant neoplasm of breast Breast cancer screen [facility] Start: 2019 Screening for malign ant neoplasm of colon Flexible sigmoidoscopy [facility] Start: 2019 Shingles vaccine (1 of 2) Shingles vaccine (1 of 2) [facility] Start: 2014 Screening for malign ant neoplasm of colon [facility] Start: 2009 Screening for malign ant neoplasm of breast Mammogram [facility] Start: 1999 Screening for malign ant neoplasm of cervix [facility] [employer] Start: 1990 Screening for malign ant neoplasm of cervix Pap smear [facility] Start: 02-02-1988 DTaP/Tdap/Td vaccine (1 - Tdap) DTaP/Tdap/Td vaccine (1 - Tdap) [facility] Start: 1987 Hepatitis C screening [facility] Start: 02-02-1984 HIV screening [facility] [employer] Start: 1981 Depression Screen Depression Screen [facility] Start: 1981 Depression screening using PHQ-9 (Patient Health Questionnaire 9) score Depression Screening (PHQ-2/9) [facility] Start: 02-02-1972 History and physical examination, annual for health maintenance Wellness Visit [facility] Start: 1969 COVID-19 Vaccine (#1) COVID-19 Vacci ne (#1) [facility] Start: 1969 Screening for malign ant neoplasm of cervix Pap Smear [facility] Start: 1969 Screening for malign ant neoplasm of colon [facility] Start: 1969 Tetanus vaccination Tetanus: Every 1 0yrs [facility] Bacteria identified in Unspecified specimen by Aerobe culture Urine Aerobic Culture Microbiology Routine Urinary frequency Dysuria Ordered: 07/24/2022 [facility] Work Phone: Comment on above: Ordered: 07/24/2022 End: 04-09-2022 Culture, Urine [facility] [employer] Phone: Comment on above: Once for 1 Occurrenc es starting 04/09/2022 until 04/09/2022 End: 01-21-2022 Cyclic Citrul Peptide Antibody, IgG [facility]: Comment on above: Once for 1 Occurrenc es starting 01/21/2022 until 01/21/2022 End: 01-21-2022 MISCELLANEOUS TESTING [facility] [employer] Phone: Comment on above: Once for 1 Occurrenc es starting 01/21/2022 until 01/21/2022 Immunizations Immunization Date Immunization Notes Care Provider Will jones 03-21-2020 influenza virus vaccine, unspecified formulation KEYONNA MCFARLAND [facility] Payers Date Payer Category Payer Unknown [id number] 2022 Unknown [facility] [employer] [place] [employer] [id number] 2022-Present [phone] [address] [address] [place] [address] [id number] 2022 Unknown [id number] 1969 Unknown [id number] 1969 Unknown [id number] 1969 Unknown [id number] 1969 Unknown [id number] 1969 Unknown [id number] 1969 Unknown [id number] 1969 Unknown [id number] 1969 Unknown [id number] 1969 Unknown [id number] 1959 Unknown [id number] Social History Date Type Detail Facility Start: 07-19-2020 End: 07-24-2022 Tobacco smoking status Never smoked tobacco (finding) [facility] Tobacco smoking status Never [facility] Sex Assigned At Female [facility] Tobacco smoking status NHIS Tobacco smoking consumption unknown [employer] [employer] Phone: Start: 1970 Sex Assigned At Not on file [facility] [employer] Phone: Start: 07-24-2022 Tobacco use and exposure Smokeless tobacco non-user [facility] Evaluation + Plan note 08-27-2022 Note Date & Type Note Facility 08-27-2022 Evaluation + Plan note Diagnostic Tests PendingUrine Culture 08/27/22 [facility] Instructions 07-24-2022 Patient InstructionsAttachments Note Date [...] attachments cannot be sent through Care Everywhere.Dysuria (Scottish)documented in this encounter [facility] History of Present illness Narrative 07-24-2022 Gabriela Acuña PA-C - 07/24/2022 2:49 PM EST Note Date & Type Note Facility 07-24-2022 History of Presen t illness Narrative Images from the original note were not included. Patient Name: [facility] Location: Alanis Roman [address] [facility] [address] Date Of : Date Of Visit: 1970 07/24/2022 MRN# Provider: [id number] Gabriela Acuña PA-C Chief Complaint Patient presents [...] improving). GET BETTER!!! documented in this encounter [facility] Evaluation + Plan note 10-07-2021 Note Date & Type Note Facility 10-07-2021 Evaluation + Plan note Diagnostic Tests PendingANA w/Reflex if POS 10/07/21Rheumatoid Factor Quantitative 10/07/21 [facility] Evaluation + Plan note Note Date & Type Note Facility Evaluation + Plan note No data available for this section [facility] Evaluation note Note Date & Type Note Facility Evaluation note Diagnosis Rheumatoid arthritis involving both hands, unspecified whether rheumatoid factor present (HCC) documented in this encounter [facility] [employer] Phone: Evaluation note Note Date & Type Note Facility Evaluation note Diagnosis Dysuria- Primary Urinary frequency documented in this encounter [facility] Discharge instructions Note Date & Type Note Facility Hospital Discharge instructions No data available for this section [facility] Progress note Note Date & Type Note Facility Progress note No data available for this section [facility] Summary Purpose Family History No Family History Records FoundNo Family History Records FoundNo Family History Records FoundNo Family History Records FoundNo Family History Records Found Advance Directives No Advanced Directives Records FoundNo Advanced Directives Records FoundNo Advanced Directives Records FoundNo Advanced Directives Records FoundNo Advanced Directives Records Found Additional Source Comments Care Teams (unrecognized sec tion and content) Cooling System Operator Relationship Specialty Start Date End Date Chris Leslie [address] [place] [address] PCP - General Family Medicine 01/21/22 Cooling System Operator Relationship Specialty Start Date End Date Chris Leslie [address] [place] [address] PCP - General Family Medicine 01/21/22 Cooling System Operator Relationship Specialty Start Date End Date Keyonna Mcfarland, TELEPHONE SOLICITOR - SURGICAL RN [address] [place] [address] PCP - General 04/09/22 Cooling System Operator Relationship Specialty Start Date End Date No, Physician [facility] PCP - General 07/24/22 INFORMATION SOURCE (unrecogn ized section and content) DATE CREATED AUTHOR 04/13/2022 [facility] DATE CREATED AUTHOR AUTHOR'S ORGANIZ ATION 06/20/2022 [facility] DATE CREATED AUTHOR AUTHOR'S ORGANIZ ATION 07/25/2022 [facility] DATE CREATED AUTHOR AUTHOR'S ORGANIZ ATION 05/08/2023 [facility] DATE CREATED AUTHOR AUTHOR'S ORGANIZ ATION 06/19/2023 [facility] EPIC Reason for Visit (unrecogniz [...] BE BASED ON THE PRIMARY CLINICAL RECORDS. [employer] [facility]. provides no warranty or guarantee of the accuracy or completeness of information in this document.
== END 2023-07-12 18:05 | disposition home or self-care (01) ==
LOC: RAD 18:08
DX: R05.1 Acute cough (principal)
CPT/HCPCS: 71046